=== PATIENT | female | born 1940 | race Caucasian/White ===

== ENCOUNTER 2024-03-22 12:52 | Outpatient (AMB) | payer MEDICARE, BC, SELFPAY ==
--- NOTE | 2024-03-22 12:57 | AM.OFFWIN_ITS ---
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 Allergy (Unknown, Uncoded 03/22/24 12:58) Unknown Do you need a note to return to daycare/school/sports/work: No HPI HPI Comments History of Present Illness Details 83 y/o female patient who presents to [facility] with c/o Epigastric region pain since yesterday evening after dinner. Pt ate a Hot Dog with Ketchup, Relish and mustard for dinner. H/o ?DC Sep 2023, with no surgery, Since then Pt has been very worried. Denies SOB, Palpitations, headaches or dizziness. PFSH Social History Patient Tobacco Use Status: Never used Tobacco Review of Systems Const All systems reviewed & are unremarkable except as noted in HPI and below Physical Exam Vital Signs: Last Vital Signs Temp 97.9 F 03/22/24 13:02 Pulse 76 03/22/24 13:02 BP 130/76 03/22/24 13:02 Pulse Ox 94 03/22/24 13:02 Oxygen Delivery Method Room Air 03/22/24 13:02 Const General: comfortable and no acute distress Orientation/consciousness: patient oriented x3 Resp Effort & Inspection: normal respiratory effort Auscultation: clear to auscultation bilaterally Cardio Rate: regular rate Rhythm: regular rhythm Neuro General: patient oriented x3, gait normal (Walks with a Cane) and moves all extremities Psych Speech and movement: Normal speech and movement present Assessment & Plan Assessment & Plan (1) Epigastric abdominal pain: Code(s): R10.13 - Epigastric pain Plan: Probably Acid Reflux, will Tx with Anti-Acid Advised to watch her diet, avoid oily and greasy foods. Educated on Signs of DC and when to call 911 F/U with PCP Medications: New famotidine 40 mg PO BEDTIME 60 tabs 0RF R10.13 - Epigastric pain Coding Level of Care Code Est Pt Level 3 (08398) Diagnoses Epigastric abdominal pain R10.13 Time Spent (min) 15
[2024-03-22 13:02] VITALS: BP 130/76; PULSE 76; TEMP 36.6; O2SAT 94
== END 2024-03-22 14:31 | disposition home or self-care (01) ==
PROVIDERS: PCP Internal Medicine; Visit Provider Nurse Practitioner Family
DX: R10.13 Epigastric pain (principal)
CPT/HCPCS: 99213

== ENCOUNTER 2024-06-14 13:41 | Outpatient (AMB) | payer MEDICARE, BC, SELFPAY ==
--- NOTE | 2024-06-14 13:46 | MHC.OFFWIV ---
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 Intake Note: pt is here for concern of UTI, and also has possible object in left eye Patient Tobacco Use Status: Never used Tobacco Allergies N.K.D.A. Allergy (Unknown, Uncoded 06/14/24 14:07) Unknown Do you need a note to return to daycare/school/sports/work: No HPI HPI Comments History of Present Illness Details This is an 83-year-old female who presents to the walk-in clinic complaining of concern for UTI and left eye irritation. Patient states she has been having intermittent vaginal irritation for the past 1-2 weeks. She acute denies any dysuria, hematuria, urinary frequency urinary urgency. She states she did have some dark orange urine the other day; however, this has resolved. She denies any fever/chills. She denies any flank/back pain. Additionally, patient has a foreign body sensation in her left eye. She states she looked in her left eye and saw a dark bump?. She denies any eye redness or pain. She denies any visual disturbances or changes. [facility] Social History Patient Tobacco Use Status: Never used Tobacco Review of Systems Const All systems reviewed & are unremarkable except as noted in HPI and below Reports no additional complaints Eyes Reports no additional complaints ENT Reports no additional complaints Card Reports no additional complaints Resp Reports no additional complaints GI Reports no additional complaints Reports no additional complaints Musc Reports no additional complaints Skin/Breast Reports system reviewed and no additional complaints, except as documented Neuro Reports no additional complaints Psych Reports no additional complaints Endo Reports no additional complaints Jay Jay/Lymph Reports no additional complaints Aller/Immun Reports no additional complaints Physical Exam Vital Signs: Last Vital Signs Temp 97.9 F 06/14/24 14:06 Pulse 78 06/14/24 14:06 BP 142/80 H 06/14/24 14:06 Pulse Ox 98 06/14/24 14:06 Oxygen Delivery Method Room Air 06/14/24 14:06 Const Other: Vital signs reviewed. Constitutional: Non-toxic appearing. No acute distress. Well-developed and well-nourished. HEENT: Normocephalic and atraumatic. There is a small clear to white-luke fluid-filled bump on the lateral aspect of the internal left lower eyelid without eyelid pain/swelling/erythema. Skin: Warm and dry. No rashes or lesions noted. Neck: Full and painless range of motion. Cardio: Regular rate. Pulmonary: No respiratory distress. No accessory muscle usage. Gastrointestinal: Soft, nontender, and nondistended in all 4 quadrants. Genitourinary: No CVA tenderness. There is external vaginal irritation and mild erythema. There is no vaginal discharge. Musculoskeletal: Normal range of motion in joints throughout the body. No deformity or other signs of injury. Neuro: Alert and oriented x4. Cranial nerves 2-12 grossly intact. No focal deficits appreciated. Psych: Normal mood and affect. Results AMB Urinalysis, Automated UA Leukoctes 15 Marcelo/uL Last Edit by Eric Frazier CMA on 06/14/24 14:28 UA Nitrite Negative Last Edit by Eric Frazier CMA on 06/14/24 14:28 UA Urobilinogen 0.2 mg/dL Last Edit by Eric Frazier CMA on 06/14/24 14:28 UA Protein 30 mg/dL Last Edit by Eric Frazier CMA on 06/14/24 14:28 UA pH 0 Last Edit by Eric Frazier CMA on 06/14/24 14:28 UA Blood 0 Velasquez/uL Last Edit by Eric Frazier CMA on 06/14/24 14:28 UA Specific Critz 1.030 Last Edit by Eric Frazier CMA on 06/14/24 14:28 UA Ketone Negative Last Edit by Eric Frazier CMA on 06/14/24 14:28 UA Bilirubin 0 mg/dL Last Edit by Eric Frazier CMA on 06/14/24 14:28 UA Glucose 0 mg/dL Last Edit by Eric Frazier CMA on 06/14/24 14:28 Assessment & Plan Assessment & Plan (1) Vaginal irritation: Code(s): N89.8 - Other specified noninflammatory disorders of vagina Plan: This is an 83-year-old female who presented to the walk-in clinic with concerns of a urinary tract infection. Patient reports on and off vaginal irritation but denies any dysuria, hematuria, urinary frequency, or urinary urgency. She has no fevers or chills or flank pain. A vaginal exam was performed and front end software engineer was offered; however, patient declined. On vaginal exam, patient has external vaginal irritation and erythema without any vaginal discharge. Patient was given a prescription for miconazole topical cream to apply externally every night at bedtime. A urinalysis was obtained, which showed minimal leukocyte esterase, which is likely contamination without nitrites. Patient does not appear to have a urinary tract infection given atypical symptoms and essentially negative urinalysis. Patient was advised to follow-up here if she were to develop dysuria, hematuria, frequency, urinary urgency, fever/chills, flank pain. Patient verbalized her understanding and she is in agreement with the plan. (2) Hordeolum internum left lower eyelid: Code(s): H00.025 - Hordeolum internum left lower eyelid Plan: Patient also complained of a foreign body sensation of her left eye. On physical examination, there is a small fluid-filled cyst on the lateral aspect of the left lower eyelid, which likely represented a hordeolum. Patient was given a prescription for erythromycin ophthalmic ointment twice daily as well as a recommendation warm compresses daily. Patient verbalized understanding and she is in agreement with this plan, as well. Orders: Orders AMB Urinalysis Automated Today Z13.9 - Encounter for screening, unspecified Medications: New miconazole nitrate 2% 1 appful vaginal BEDTIME 7 days 45 grams 0RF erythromycin 0.5 inches ophthalmic (eye) BID 3.5 grams 0RF Coding Level of Care Code New Pt Level 3 (15314) Diagnoses Vaginal irritation N89.8 Hordeolum internum left lower eyelid H00.025
[2024-06-14 14:06] VITALS: BP 142/80; PULSE 78; TEMP 36.6; O2SAT 98
== END 2024-06-14 14:48 | disposition home or self-care (01) ==
PROVIDERS: PCP Internal Medicine; Visit Provider Physician Assistant Medical
DX: N89.8 Other specified noninflammatory disorders of vagina (principal); H00.025 Hordeolum internum left lower eyelid; Z13.9 Encounter for screening, unspecified

== ENCOUNTER → 2024-06-14 13:41 | Outpatient (BNVA) | payer MEDICARE, BC, SELFPAY | PROVIDERS: PCP Internal Medicine | DX: N89.8 Other specified noninflammatory disorders of vagina (principal); H00.025 Hordeolum internum left lower eyelid | CPT/HCPCS: 81003; 99202 ==

== ENCOUNTER 2025-02-07 13:10 | Emergency (ER) | payer MEDICARE, BC, SELFPAY ==
[2025-02-07] VITALS (8 sets, daily range): BP systolic 120–147; BP diastolic 48–61; PULSE 69–79; RESP 16–24; TEMP 36.3–36.8; O2SAT 95–97; BMI 19.6
--- NOTE | ~2025-02-07 | XR_ITS ---
CLINICAL HISTORY: cough, dysphagia 1 view chest x-ray Comparison: None Findings: Pulmonary vascular congestion. No large effusion or pneumothorax. Mild cardiomegaly. Aortic atherosclerosis. No acute fracture. IMPRESSION: 1. Pulmonary vascular congestion. 2. Mild cardiomegaly. This document has been electronically signed by: Aashish Hagen MD on 02/07/2025 17:58:58
--- NOTE | ~2025-02-07 | CT_ITS ---
EXAMINATION: CT HEAD WITHOUT CONTRAST CLINICAL INFORMATION: Severe headache. No focal neurologic abnormality. COMPARISON: None available. TECHNIQUE: Contiguous axial imaging was performed from the skull base to vertex without intravenous administration of contrast. This CT examination was performed using dose optimization techniques as appropriate, variously including the following: *Automated exposure control *Adjustment of mA and/or kV according to patient size (this includes techniques or standardized protocols for targeted exams where dose is matched to indication/reason for exam; i.e. extremities or head) *Use of iterative reconstruction technique FINDINGS: There is no evidence of intracranial hemorrhage or extra-axial fluid collection. There is no mass effect, or edema. No CT evidence of acute territorial infarct. Ventricles, sulci, and cisterns are normal in size and configuration for patient age. No hydrocephalus. No midline shift. Negative hyperdense MCA sign. Negative insular ribbon sign. Patchy periventricular and deep white matter hypoattenuation is consistent with moderate small vessel ischemic changes. Normal pituitary. Atheromatous calcification of the bilateral carotid siphons and V4 segments vertebral arteries bilaterally. Globes and orbital contents image normally. There are bilateral lens replacements. No extracranial soft tissue abnormalities. The paranasal sinuses, mastoid air cells, and tympanic cavities are normally aerated. No suspicious bony abnormalities. There are no acute fractures evident. CT/CT head/brain wo IV con IMPRESSION: No acute intracranial abnormality. Electronically signed by: Kwan Barragan MD 02/07/2025 04:17 PM EDT
--- OUTSIDE RECORDS SUMMARY | 2025-02-07 13:48 | XMS_ITS | Continuity of Care Document ---
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 Name Role Phone Patrick GARAY, Kannan Thomas Primary Care Physician Encounter [facility] [place] Date(s): 02/04/25 - 02/04/[address] [address]- Discharge Disposition: A-D/C Walkout Attending Physician: Not on Staff, Attending MD Admitting Physician: Not on Staff, Admitting MD Referring Physician: Not on Staff, Referring MD Encounter Type: Disch ES Allergies, Adverse Reactions, Alerts Substance Criticality Severity Reaction Reaction Severity Status valsartan Cough at rest Stomach pain Active Immunizations Given and Recorded Vaccine Date Status Refusal Reason SARS-CoV-2 (COVID-19) mRNA BNT-162b2 vac 08/26/21 Recorded SARS-CoV-2 (COVID-19) mRNA BNT-162b2 vac 12/31/20 Given SARS-CoV-2 (COVID-19) mRNA BNT-162b2 vac 12/10/20 Given Medications aspirin 81 mg oral delayed release tablet = 81 mg, By Mouth, Daily, # 30 tablet, 0 Refills, Maintenance, 10/10/23 8:49:00 AM EST, EC Tablet, [facility], Partial fill upon patient request if the prescription is for a schedule II opioid drug., 152, cm, 10/10/23 8:02:00 EST, Height, 55, kg, 10/08/23 15:02:00 EST, Dry Weight Start Date: 10/10/23 Stop Date: 11/09/23 Status: Ordered Quantity: 30.0 Unit: tablet Repeat number: 1 atorvastatin 40 mg oral tablet = 40 mg, By Mouth, Daily at bedtime, # 30 tablet, 0 Refills, Maintenance, 10/10/23 8:49:00 AM EST, Tablet, [facility], Partial fill upon patient request if the prescription is for a schedule II opioid drug., 152, cm, 10/10/23 8:02:00 EST, Height, 55, kg, 10/08/23 15:02:00 EST, Dry Weight Start Date: 10/10/23 Stop Date: 11/09/23 Status: Ordered Quantity: 30.0 Unit: tablet Repeat number: 1 Barrier (Sharri) rings Barrier (Sharri) rings, See Instructions, # 20 each, Refills 11, Tot. Refills 11, Maintenance, use as needed for ostomy maintaince. Dx Colostomy Z93.3, 03/11/24 3:51:00 PM EDT, Supply Start Date: 03/11/24 Status: Ordered Quantity: 20.0 Unit: each Repeat number: 12 Barrier strips [id number] Barrier strips [id number], See Instructions, # 40 each, Refills 11, Tot. Refills 11, Maintenance, use as needed for ostomy maintaince. Dx Colostomy Z93.3, 03/11/24 3:51:00 PM EDT, Supply Start Date: 03/11/24 Status: Ordered Quantity: 40.0 Unit: each Repeat number: 12 Blood Pressure Monitor See Instructions, # 1 each, Refills 0, Tot. Refills 0, Maintenance, dx HTN, 09/06/24 8:41:00 AM EST, Supply, 153, cm, 08/19/24 15:09:00 EST, Height, 46.81, kg, 07/16/24 18:47:00 EDT, Dry Weight Start Date: 09/06/24 Status: Ordered Quantity: 1.0 Unit: each Repeat number: 1 Brava thin seals # [id number] Brava thin seals # [id number], See Instructions, # 20 each, Refills 11, Tot. Refills 11, Maintenance, use as needed for ostomy maintenance Dx colostomy Z93.3, 02/20/24 3:09:00 PM EDT, Compound Start Date: 02/20/24 Status: Ordered Quantity: 20.0 Unit: each Repeat number: 12 carvedilol 25 mg oral tablet 0.5, tablet, By Mouth, 2 times a day, # 90 tablet, Refills 0, Maintenance, 01/28/25 10:41:00 AM EDT,Route to Pharmacy Electronically, [facility] #[id number], 153, cm, 01/24/25 12:57:00 EDT, Height, 46.81, kg, 07/16/24 18:47:00 EDT, Dry Weight Start Date: 01/28/25 Status: Ordered Quantity: 90.0 Unit: tablet Repeat number: 1 clonazepam 0.5 mg oral tablet 1 tablet = 0.5 mg, By Mouth, 3 times a day, prn, 0 Refills, Maintenance, 05/17/13 1:33:45 PM EDT Start Date: 05/17/13 Status: Ordered Repeat number: 1 coloplast assura bags (#[id number]) coloplast assura bags (#[id number]), See Instructions, # 20 each, Refills 11, Tot. Refills 11, Maintenance, use as needed for ostomy maintaince. Dx Colostomy Z93.3, 03/11/24 3:52:00 PM EDT, Supply Start Date: 03/11/24 Status: Ordered Quantity: 20.0 Unit: each Repeat number: 12 coloplast bags #[id number] coloplast bags #[id number], See Instructions, # 20 each, Refills 11, Tot. Refills 11, Maintenance, use as needed for ostomy care Dx. colostomy Z93.3, 02/20/24 3:09:00 PM EDT, Compound Start Date: 02/20/24 Status: Ordered Quantity: 20.0 Unit: each Repeat number: 12 diclofenac 3% topical gel = 0.5 Gm, Topically, 2 times a day, # 100 Gm, 0 Refills, Maintenance, 05/17/24 11:15:00 PM EDT, Gel,[facility] #[id number], Partial fill upon patient request if the prescription is for a schedule II opioid drug., 0.5 Gm Topically 2 times a day, 152.5, cm, 04/19/24 11:52:00 EDT, Height, 50, kg,02/02/24 10:14:00 EDT, Dry Weight Start Date: 05/17/24 Status: Ordered Quantity: 100.0 Unit: g Repeat number: 1 hydrALAZINE 25 mg oral tablet 25 mg, 1, tablet, By Mouth, 2 times a day, Take with 50mg dose. total dose is 75 mg, # 180 tablet, Refills 1, Tot. Refills 1, Maintenance, 11/12/24 10:17:00 AM EST, Route to Pharmacy Electronically, [facility] #[id number], Partial fill upon patient request if the prescription is for a schedule II opioid drug., 153, cm, 08/19/24 15:09:00 EST, Height, 46.81, kg, 07/16/24 18:47:00 EDT, Dry Weight Start Date: 11/12/24 Stop Date: 05/11/25 Status: Ordered Quantity: 180.0 Unit: tablet Repeat number: 2 hydrALAZINE 50 mg oral tablet 1 tablet = 50 mg, By Mouth, 2 times a day, take with the 25mg dose. Total dosage is 75 mg, # 180 tablet, 1 Refills, Maintenance, 11/12/24 10:16:00 AM EST, [facility] #[id number], 153, cm, 08/19/24 15:09:00 EST, Height, 46.81, kg, 07/16/24 18:47:00 EDT, Dry Weight Start Date: 11/12/24 Stop Date: 05/11/25 Status: Ordered Quantity: 180.0 Unit: tablet Repeat number: 2 isosorbide mononitrate 60 mg oral tablet, extended release 60 mg, 1, tablet, By Mouth, Daily in AM, # 30 tablet, Refills 4, Tot. Refills 4, Maintenance, 11/06/24 2:37:00 PM EST, Route to Pharmacy Electronically, [facility] #[id number], Partial fill upon patient request if the prescription is for a schedule II opioid drug., 153, cm, 08/19/24 15:09:00 EST, Height, 46.81, kg, 07/16/24 18:47:00 EDT, Dry Weight Start Date: 11/06/24 Status: Ordered Quantity: 30.0 Unit: tablet Repeat number: 5 MiraLax oral powder for reconstitution = 17 Gm, By Mouth, Daily, dissolve in water or juice, # 527 Gm, 3 Refills, Maintenance, 02/20/24 5:09:00 PM EDT, [facility] #[id number], Partial fill upon patient request if the prescription is for a schedule II opioid drug., 17 Gm By Mouth Daily,Instr:dissolve in water or juice, 152.5, cm, 02/07/24 10:11:00 EDT, Height, 50, kg, 02/02/24 10:14:00 EDT, Dry Weight Start Date: 02/20/24 Status: Ordered Quantity: 527.0 Unit: g Repeat number: 4 no sting skin prep spray no sting skin prep spray, See Instructions, # 1 each, Refills 11, Tot. Refills 11, Maintenance, useas needed for ostomy care. Dx colostomy Z 93.3, 02/20/24 3:09:00 PM EDT, Compound Start Date: 02/20/24 Status: Ordered Quantity: 1.0 Unit: each Repeat number: 12 No sting spray (skin prep) No sting spray (skin prep), See Instructions, # 1 each, Refills 11, Tot. Refills 11, Maintenance, use as needed for ostomy maintaince. Dx Colostomy Z93.3, 03/11/24 3:51:00 PM EDT, Supply Start Date: 03/11/24 Status: Ordered Quantity: 1.0 Unit: each Repeat number: 12 precut coloplast bags #[id number] precut coloplast bags #[id number], See Instructions, # 20 each, Refills 11, Tot. Refills 11, Maintenance, use as needed for ostomy care Dx. colostomy Z93.3, 04/16/24 1:39:00 PM EDT, Compound Start Date: 04/16/24 Status: Ordered Quantity: 20.0 Unit: each Repeat number: 12 sertraline 25 mg oral tablet TAKE 1 TABLET BY MOUTH DAILY Start Date: 11/28/24 Status: Ordered Repeat number: 1 Zolpidem = 10 mg, By Mouth, Daily at bedtime, 0 Refills, Maintenance, 01/20/23 1:53:00 PM EDT, Partial fill upon patient request if the prescription is for a schedule II opioid drug. Start Date: 01/20/23 Status: Ordered Repeat number: 1 Problem List Condition Confirmation Course Effective Dates Status H ealth Status Informant Chest pain Confirmed Active Coronary artery disease Confirmed Active Hiatal hernia Confirmed Active Hyperlipidemia Confirmed Active Hypertension Confirmed Active Vital Signs Most recent to oldest [Reference Range]: 1 Height 153 cm (02/04/25 3:07 PM) Oxygen Saturation [94-100 %] 99 % (02/04/25 3:07 PM) Pulse Rate [55-90 bpm] 78 bpm (02/04/25 3:07 PM) Blood Pressure [90-138/55-84 mm Hg] 195/ 78mm Hg *H* (02/04/25 3:07 PM) Respiratory Rate [16-30 br/min] 18 br/mi n (02/04/25 3:07 PM) Temperature [96.8-100.4 DegF] 98.5 DegF (02/04/25 3:07 PM) Mode of Delivery (Oxygen) Room air (02/04/25 3:07 PM) Blood pressure sites Arm, left (02/04/25 3:07 PM) Temperature Route Oral (02/04/25 3:07 PM) Dry Weight 45 kg (02/04/25 3:07 PM) Dry Weight Obtained Via Patient/family s tated (02/04/25 3:07 PM) Social History Social History Type Response Smoking Status Former smoker; Tobac co user in household: No; Other: pt states she quit smoking in her 20s 1961; entered on: 05/15/17 Sex Sex Representation Female (finding) EKG study * Event Display: ECG 12-Lead Authored Date: Please click on pdf link to open report * Event Display: ECG 12-Lead Authored Date: Ventricular Rate: 72 BPM Atrial Rate: 72 BPM P-R Interval: 134 ms QRS Duration: 74 ms Q-T Interval: 424 ms QTC Calculation(Bazett): 464 ms P [place]: 57 degrees R [place]: -35 degrees T [place]: 51 degrees Normal sinus rhythm with sinus arrhythmia Possible Left atrial enlargement Left axis deviation Anteroseptal infarct (cited on or before 28-Nov-2024) Abnormal ECG When compared with ECG of 01-Jan-2025 13:35, No significant change Confirmed by CAROLEE LOWERY ([id number]) on 02/04/2025 3:01:17 PM [place]: CAROLEE LOWERY Patient Care team information Care Team Personnel Name: Carole Bhatia RN Position: S RN Member Role: Primary Care Nurse Name: Hue Miller RN Position: S RN Member Role: Primary Care Nurse Name: Kannan Nguyen MD Position: Reference Physician Member Role: PCP Address: [address] [place] [address] Telecom: Name: Paul Chan RN Position: S RN Member Role: Primary Care Nurse Name: Manisha Huntley RN Position: S RN Member Role: Primary Care Nurse Name: Aye Driver RN Position: S RN Member Role: Primary Care Nurse Name: Robyn Sun RN Position: S RN Member Role: Primary Care Nurse Name: Marianne Nathan RN Position: S RN Member Role: Primary Care Nurse Name: Nette Kemp RN Position: S RN Member Role: Primary Care Nurse Name: Suellen Collins RN Position: S RN Member Role: Primary Care Nurse Name: Ana Laura Day RN Position: S RN Member Role: Primary Care Nurse Name: Maggie Quinones RN Position: [facility] OB RN Member Role: Primary Care Nurse Name: Sandrita Hernandez RN Position: S RN Member Role: Primary Care Nurse Name: Cira Grayson RN Position: S RN Member Role: Primary Care Nurse Name: Alison Rouse RN Position: S RN Member Role: Primary Care Nurse Care Team Related Persons Name: ALEJANDRA CONDE Name: EZ CONDE Insurance Providers Guarantor name: MARTIN CONDE Health Plan Information #: 2 Payer: [employer] Member Number: [id number] Policy Number: NA Group Number: [id number] Health Plan Information #: 1 Payer: MEDICARE PART B OUTPT Member Number: [id number] Policy Number: NA Group Number: NA
--- NOTE | 2025-02-07 14:49 | ED_ITS ---
HPI - Headache General Chief Complaint: Headache Stated Complaint: PER EMS FLANAGAN X1 MO DYSPNEA Time Seen by Provider: 02/07/25 13:22 History of Present Illness ED Provider: Vaughn Reeder MD HPI Narrative: 84-year-old female with chronic long-lasting left-sided headache and facial/neck discomfort. No head strike, fall chiropractic manipulation or other injuries. She shows me what she feels is a sore spot on the left posterior occiput she points to the left cheek and neck musculature on the left side as being painful some retro-orbital headache as well. Not throbbing or pulsatile denies vision symptoms. No focal motor or sensory complaints Reporting increased anxiety as well. Later in the workup endorse some challenges swallowing ongoing for some time not acutely slightly worse occasional subjective choking sensation without difficulty breathing. Despite triage note denies dyspnea to me. This is more of a swallowing/dysphagia issue it seems Related Data Home Medications ?Medication ?Instructions ?Recorded ?Confirmed amlodipine 5 mg tablet 5 mg PO DAILY 03/22/24 atorvastatin 40 mg tablet 40 mg PO DAILY 03/22/24 carvedilol 12.5 mg tablet 12.5 mg PO BID 03/22/24 clonazepam 0.5 mg tablet 0.5 mg PO DAILY 03/22/24 polyethylene glycol 3350 17 17 g PO DAILY 03/22/24 gram/dose oral powder zolpidem 10 mg tablet 10 mg PO BEDTIME PRN 03/22/24 Previous Rx's ?Medication ?Instructions ?Recorded famotidine 40 mg tablet 40 mg PO BEDTIME #60 tabs 03/22/24 erythromycin 5 mg/gram (0.5 %) eye 0.5 inch ophthalmic (eye) BID #3.5 06/14/24 ointment grams miconazole nitrate 2 % vaginal 1 appful vaginal BEDTIME 7 days 06/14/24 cream #45 grams alprazolam 0.25 mg tablet (Xanax) 0.25 mg PO BID PRN anxiety #7 tabs 02/07/25 nystatin 100,000 unit/mL oral 400,000 unit (4 mL) PO QID 7 days 02/07/25 suspension #112 mL Allergies Allergy/AdvReac Type Severity Reaction Status Date / Time N.K.D.A. Allergy Unknown Unknown Uncoded 02/07/25 13:29 [facility] Social History Social History Patient Tobacco Use Status: Never used Tobacco Physical Exam 2 Vital Signs: Vital Signs: Last Vital Signs Temp 98.3 F 02/07/25 18:32 Pulse 76 02/07/25 18:32 Resp 16 02/07/25 18:32 BP 143/61 H 02/07/25 18:32 Pulse Ox 95 02/07/25 18:32 O2 Del Method Room Air 02/07/25 18:32 BMI result Body Mass Index 19.6 Const: Other: EXAM: Gen: Alert, awake, well appearing, well hydrated. Anxious Head: Atraumatic mild tenderness without palpable nodularity or mass in the left occiput. No injuries Eyes: Anicteric, Normal conjunctiva. Pupils 2-3 mm symmetric and reactive EOMI no conjunctival injection. No pain with extraocular movement. ENT: Moist mucosa, no pallor. ?Mild facial tenderness. Tongue does have a thick white film scattered somewhat suggestive of thrush Neck: Supple. Tenderness over the left sternocleidomastoid no masses supple otherwise Respiratory: Breathing comfortably, No distress.Clear to auscultation bilaterally, symmetric chest expansion, No wheeze, rales, ronchi. Cardiovascular: Regular rate and rhythm. No murmurs or rub. Well perfused periphery, warm extremities. No edema. ? Abdominal: Soft, no objective distension. No palpable masses or obvious organomegaly. No focal tenderness, no guarding, no rebound tenderness or other peritoneal findings. : No flank tenderness. Neuro: Alert. Gross movement of all extremities intact. ?5/5 strength proximal distal upper and lower extremities bilaterally sensation intact to light touch. Face symmetric normal speech Vital signs: See flowsheet Medications Administered Discontinued Medications Generic Name Dose Route Start Last Admin Trade Name Freq PRN Reason Stop Dose Admin Acetaminophen 975 mg 02/07/25 16:24 02/07/25 17:16 Acetaminophen 325 Mg Tablet PO 02/07/25 16:25 975 mg ONCE ONE Administration Alprazolam 0.25 mg 02/07/25 17:12 02/07/25 17:16 Alprazolam 0.25 Mg Tablet PO 02/07/25 17:13 0.25 mg ONCE ONE Administration Nystatin 500,000 unit 02/07/25 17:12 02/07/25 17:16 Nystatin Oral Susp 500,000 Unit/5 Ml Oral.Susp PO 02/07/25 17:13 500,000 unit ONCE ONE Administration Protocol Medical Decision Making Medical Decision Making [facility] Narrative: 84-year-old female with left-sided headache scalp tenderness and neck pain. No injuries. Reassuring normal neurologic exam. Tension versus neck strain versus dehydration versus migraine versus intracranial mass or process. Patient clearly anxious contributing to some of this. She does appear to have some type of dysphagia but she has no stridor patent airway oropharynx is clear she does have some mild signs of thrush and I think it is reasonable to empirically treat this and refer her to outpatient PCP for GI referral for possible endoscopy to see if she has esophageal thrush she does not have a clear reason as to why she would have this as she is not immunocompromised Lab Data [facility] Lab Attestation statement: I reviewed the patient's lab results. 02/07/25 16:04 02/07/25 16:04 Labs: Lab Results 02/07/25 Range/Units 16:04 WBC 9.2 (4.8-10.8) X10*3/uL RBC 4.31 (4.20-5.50) X10*6/uL Hgb 13.0 (12.0-16.0) g/dl Hct 38.3 (37.0-47.0) % MCV 88.9 (80.0-98.0) fL MCH 30.2 (27.0-33.0) pg MCHC 33.9 (31.0-35.0) g/dl RDW 15.7 (11.0-16.0) % Plt Count 305 (160-400) X10*3/uL MPV 10.4 (9.4-12.3) fL Immature Gran % (Auto) 0.3 (0.0-0.4) % Neut % (Auto) 68.5 (45-73) % Lymph % (Auto) 21.3 (20-40) % [place] % (Auto) 9.0 (2-11) % Eos % (Auto) 0.4 (0-4) % Baso % (Auto) 0.5 (0-2) % Lymph # (Auto) 2.0 (1.2-4.9) X10*3/uL [place] # (Auto) 0.8 (0.1-1.2) X10*3/uL Eos # (Auto) 0.0 (0.0-0.4) X10*3/uL Baso # (Auto) 0.1 (0.0-0.2) X10*3/uL Abs Immat Gran (auto) 0.03 (0.00-0.03) X10*3/uL Absolute Neuts (auto) 6.3 (2.0-8.3) x10*3/uL Absolute Nucleated RBC 0.000 (0.0-0.012) X10*3/uL Nucleated RBC % (auto) 0.0 (0.0-0.2) /100WBC Sodium 136 (135-145) mmol/L Potassium 4.1 (3.3-5.1) mmol/L Chloride 102 (96-108) mmol/L Carbon Dioxide 23 (22-29) mmol/L Anion Gap 15 (12-20) BUN 13 (9-16) mg/dL Creatinine 0.56 (0.5-1.4) mg/dL Estim Creat Clear Calc 51.8 Estimated GFR > 60 Random Glucose 109 (60-115) mg/dL Calcium 9.2 (8.4-10.2) mg/dL Independent Interpretation I performed an independent interpretation of an: Plain X-Ray (Clear no infiltrates) Radiology Impression Discussion of test interpretation with radiology: I have reviewed the radiologist's reading. Discharge Plan Discharge Clinical Impression: Headache, Oral thrush, Anxiety Patient Disposition: Home, Self-Care Instructions: Oral Candidiasis (ED), Acute Headache (DC), Anxiety (ED) Additional Instructions: _ DISCHARGE DIAGNOSES: Headache unclear cause acute severe or serious causes ruled out with head CT in the ER Anxiety nonspecified Possibly thrush or candidiasis fungal infection of the tongue mouth HISTORY OF PRESENTATION: ?Headache neck pain ear pain EMERGENCY DEPARTMENT COURSE,TESTS, TREATMENTS: While in the ED today you had basic lab work and a CT of the brain which showed no acute pathology DISCHARGE MEDICATIONS: ?[We have made no changes to your regular medication regimen] we have however added on prescription for nystatin an antifungal mouth medicine to be switched in the mouth and swallowed as well as an anxiety medicine to be taken only as needed. FOLLOW-UP: ?Call your primary or general physician soon as possible to discuss your symptoms, your ED visit and to discuss follow up plans Call your primary doctor for referral to GI doctor to schedule an upper endoscopy Call your primary doctor for follow up continue with Tylenol or ibuprofen as needed heating pad to the neck or massages of the neck muscles INSTRUCTIONS ?& RETURN PRECAUTIONS: If any symptoms change first call your primary physician, if it is after-hours your primary doctors office should have a provider informatics consultant you can speak with. If the symptoms are severe or very concerning to you then call 911 or return to the ED. Return for severe worsening headache, vision changes, 1 side or the other side of your body week numb or tingling or other significant or severe symptoms as we discussed Vaughn Reeder MD Emergency Physician [facility] Prescriptions: New nystatin 100,000 unit/mL suspension 400,000 unit PO QID 7 Days Qty: 112 0RF Rx Instructions: swish and swallow alprazolam [Xanax] 0.25 mg tablet 0.25 mg PO BID PRN (Reason: anxiety) Qty: 7 0RF No Action carvedilol 12.5 mg tablet 12.5 mg PO BID zolpidem 10 mg tablet 10 mg PO BEDTIME PRN polyethylene glycol 3350 17 gram/dose powder 17 g PO DAILY clonazepam 0.5 mg tablet 0.5 mg PO DAILY atorvastatin 40 mg tablet 40 mg PO DAILY amlodipine 5 mg tablet 5 mg PO DAILY famotidine 40 mg tablet 40 mg PO BEDTIME Qty: 60 0RF miconazole nitrate 2 % cream 1 appful vaginal BEDTIME 7 Days Qty: 45 0RF erythromycin 5 mg/gram (0.5 %) ointment 0.5 inch ophthalmic (eye) BID Qty: 3.5 0RF Interventions: ED Discharge Assessment Last Done: 02/07/25 18:32 Discharge Date/Time: 02/07/25 18:32 Print Language: Egyptian
[2025-02-07 16:12] LABS: MANUAL DIFF FLAG NO
[2025-02-07 16:14] LABS: Basophils Absolute Auto 0.1 X10*3/uL (0.0-0.2); Basophils Percent Auto 0.5 % (0-2); Eosinophils Percent Auto 0.4 % (0-4); Hematocrit 38.3 % (37.0-47.0); Imm Gran Abs Auto 0.03 X10*3/uL (0.00-0.03); Imm Gran Pct Auto 0.3 % (0.0-0.4); Lymphocytes Percent Auto 21.3 % (20-40); Mean Corpuscular HGB Conc 33.9 g/dl (31.0-35.0); Mean Corpuscular Hemoglobin 30.2 pg (27.0-33.0); Mean Corpuscular Volume 88.9 fL (80.0-98.0); Mean Platelet Volume 10.4 fL (9.4-12.3); Monocytes Absolute Auto 0.8 X10*3/uL (0.1-1.2); Neutrophils Absolute Auto 6.3 x10*3/uL (2.0-8.3); Neutrophils Percent Auto 68.5 % (45-73); Platelet Count 305 X10*3/uL (160-400); Red Blood Count 4.31 X10*6/uL (4.20-5.50); Red Cell Distribution Width 15.7 % (11.0-16.0); White Blood Count 9.2 X10*3/uL (4.8-10.8)
[2025-02-07 16:28] LABS: Anion Gap 15 (12-20); Blood Urea Nitrogen 13 mg/dL (9-16); Calcium 9.2 mg/dL (8.4-10.2); Carbon Dioxide 23 mmol/L (22-29); Chloride 102 mmol/L (96-108); Creatinine Clr Calc Pharmacy 51.8; Estimated Glomerular Filt Rate > 60; Glucose Random 109 mg/dL (60-115); Potassium 4.1 mmol/L (3.3-5.1); Sodium 136 mmol/L (135-145)
--- NOTE | 2025-02-07 16:38 | PC.NURSE ---
CT scan back; no findings. ED provider approved PO liquids and Pt given ice water with straw. Pt up for D/C. Upon entering room, Pt reports she is now having difficulty swallowing. Pt and daughter now report Pt had difficulty swallowing last night but was able to eat oatmeal this AM. Pt reports she was able to take a few sips but now feels like her throat is closing up. O2 sat 96% RA Breaths and speech are unlabored. Skin is warm and dry; color consistent with ethnicity. ED provider made aware. Will hold ordered PO Tylenol at this time. Dispo pending.
[2025-02-07] MEDS: ALPRAZolam 0.25 MG TABLET PO (17:16)
[2025-02-07] MEDS: Nystatin Oral Susp 500,000 UNIT/5 ML ORAL.SUSP 500000 UNIT PO (17:16)
[2025-02-07] MEDS: Acetaminophen 325 MG TABLET 975 MG PO (17:16)
--- NOTE | 2025-02-07 17:24 | PC.NURSE ---
Provider to bedside for eval of throat and Pts complaints. New orders placed. Pt given sips of water and swallows without difficulty. PO meds given per NOV Nystatin per NOV. Awaiting CXR
== END 2025-02-07 18:32 | disposition home or self-care (01) ==
PROVIDERS: Emergency Provider Emergency Medicine; PCP Internal Medicine
DX: B37.0 Candidal stomatitis (principal); R51.9 Headache, unspecified; M54.2 Cervicalgia; F41.9 Anxiety disorder, unspecified; R05.9 Cough, unspecified; R13.10 Dysphagia, unspecified; Z79.899 Other long term (current) drug therapy
CPT/HCPCS: 36415; 70450; 71045; 80048; 85025; 99284

== ENCOUNTER → 2025-02-07 15:21 | Outpatient (BNV) | payer MEDICARE, BC, SELFPAY | PROVIDERS: Emergency Provider Emergency Medicine; PCP Internal Medicine; Visit Provider Radiology Diagnostic Radiology | DX: J81.0 Acute pulmonary edema (principal); R51.9 Headache, unspecified | CPT/HCPCS: 70450 ==

== ENCOUNTER 2025-07-04 13:23 | Emergency (ER) | payer MEDICARE, BC, SELFPAY ==
--- OUTSIDE RECORDS SUMMARY | 2024-06-14 09:15 | XMS_ITS ---
Author Organization [facility] Address [address] [place] [address] Care Team Providers Care Graphite Disk Assembler Name Role Phone Kannan Nguyen MD Primary Care Provider Roxana Del Rio [phone] REASON FOR VISIT Seen Sooner Encounters Encounter Location Date Provider Diagnosis [address] [address] 06/14/2024 Roxana Quiles Plan Of Treatment Next Appt Details Provider Name:Roxana avery, 10/10/2025 11:00:00 AM, [address] [place], [address], Progress Notes * Stephanie GRAY MDOB: [birth year] (84 yo F)Acc No.[id number]:06/14/2024 Progress Note Patient: Charlene RIDERStephanie Avery Provider: Nikki Quiles DPM :1940 A ge:83 Y S ex:Female Date:06/14/2024 Address: [address] [id number] Pcp:Kannan Nguyen MD Subjective: * Chief Complaints: [...] 06/14/2024 Generated for Leeann juares/Aneta/Lorena on: 1 04:23 PM EDT
--- OUTSIDE RECORDS SUMMARY | 2024-08-09 08:00 | XMS_ITS ---
Author Organization [facility] Address [address] [place] [address] Care Team Providers Care Commander Police Reserves Name Role Phone Kannan Nguyen MD Primary Care Provider Roxana Del Rio [phone] REASON FOR VISIT Seen Sooner Encounters Encounter Location Date Provider Diagnosis [address] [address] 08/09/2024 Roxana Quiles Plan Of Treatment Next Appt Details Provider Name:Roxana avery, 10/10/2025 11:00:00 AM, [address] [place] [address], [address], Progress Notes * Stephanie GRAY MDOB: [birth year] (84 yo F)Acc No.[id number]:08/09/2024 Progress Note Patient: Charlene RIDERStephanie Avery Provider: Nikki Quiles DPM :1940 A ge:84 Y S ex:Female Date:08/09/2024 Address: [address] [id number] Pcp:Kannan Nguyen MD Subjective: * Chief Complaints: [...] 1 10/09/2023 Generated for Leeann juares/Aneta/Lorena on: 04:23 PM EDT
--- OUTSIDE RECORDS SUMMARY | 2024-09-10 06:30 | XMS_ITS ---
Author Organization [facility] Address [address] [place] [address] Care Team Providers Care Associate Quality Engineer Name Role Phone Kannan Nguyen MD Primary Care Provider Roxana Del Rio [phone] Encounters Encounter Location Date Provider Diagnosis [address] [address] 09/10/2024 Roxana Quiles Plan Of Treatment Next Appt Details Provider Name:Roxana avery, 10/10/2025 11:00:00 AM, [address] [place], [address], Progress Notes * Stephanie GRAY MDOB: [birth year] (84 yo F)Acc No.[id number]:09/10/2024 Progress Note Patient: Charlene RIDERStephanie Avery Lon Provider: Nikki Quiles DPM :1940 A ge:84 Y S ex:Female Date:09/10/2024 Address: [address] [id number] Pcp:Kannan Nguyen MD Subjective: * Chief Complaints: [...] Quiles DPM Date: 11/11/2023 Generated for Leeann juares/Aneta/Briseidaitting on: 1 04:23 PM EDT
--- OUTSIDE RECORDS SUMMARY | 2025-01-28 07:30 | XMS_ITS ---
Author Organization [facility] Address [address] [place] [address] Care Team Providers Care Faculty Research Physician Name Role Phone Kannan Nguyen MD Primary Care Provider Roxana Del Rio [phone] Encounters Encounter Location Date Provider Diagnosis [address] [address] 01/28/2025 Roxana Quiles Plan Of Treatment Next Appt Details Provider Name:Roxana avery, 10/10/2025 11:00:00 AM, [address] [place], [address], Progress Notes * Stephanie GRAY MDOB: [birth year] (84 yo F)Acc No.[id number]:01/28/2025 Progress Note Patient: Charlene RIDERStephanie Avery Lon Provider: Nikki Quiles DPM :1940 A ge:84 Y S ex:Female Date:01/28/2025 Address: [address] [id number] Pcp:Kannan Nguyen MD Subjective: * Chief Complaints: [...] DPM Date: 0 01/28/2025 Generated for Leeann juares/Aneta/Briseidaitting on: 1 04:22 PM EDT
--- OUTSIDE RECORDS SUMMARY | 2025-07-01 07:30 | XMS_ITS ---
Author [facility] Address [address] [facility] [facility] [place] [address] Care Team Providers Care Lead Setter Name Role Phone Kannan Nguyen MD Primary Care Provider Roxana Del Rio Unavailable [phone] Allergies Allergen (clinical drug ingredient) Drug/Non Drug Allergy documented on EMR Reaction Allergy Type Onset Date Status valsartan Valsartan coughing Drug Allergy Active REASON FOR VISIT At Risk Footcare, Painful Nail(s) aggrevated by shoes and causing difficulty standing/walking. Medications Medication SIG (Take, Route, Frequency, Duration) Notes Start Date End Date Status Isosorbide Mononitrate ER 60 MG 1 tablet in the morning Orally Once a day Active Vitamin D3 Active Baby Aspirin Active busPIRone HCl 10 MG 1 tablet Orally Twic e a day Active Sertraline HCl 25 MG 1 tablet Orally Onc e a day Active Tylenol 325 MG 1 tablet as needed Orally every 6 hrs; Duration: 1 dose 06/10/2014 Not-Taking Losartan Potassium-HCTZ Not-Taking Pettus 3 Not-Taking Vitamin D Not-Taking Vitamin E Not-Taking HYDROcodone-Acetaminophen Not-Taking Lansoprazole Not-Sebastian ing Omeprazole Not-Takin g Triazolam Not-Taking amLODIPine Besylate Not-Taking Doxycycline Hyclate Not-Taking Spironolactone 25 MG 1 tablet Orally; Duration: 30 day(s) Not-Taking Voltaren 1 % as directed Externally Not-Taking Valsartan 80 MG 1 tablet Orally Once a day; Duration: 30 day(s) Not-Taking Sertraline HCl Not-T aking hydrALAZINE HCl 25 MG 1 tablet with food Orally Three times a day; Duration: 30 day(s) Not-Taking Multi Vitamin Not-Ta rhona Vitamin D3 Not-Takin g Ketoconazole 2 % 1 application Externally Once a day; Duration: 14 day(s) Not-Taking Simvastatin 20 MG 1 tablet in the evening Orally Once a day; Duration: 30 days Not-Takin g Fluconazole 150 MG Oral; Duration: 2 Not-Taking clonazePAM prn Not-Takin g Isosorbide Mononitrate 20 MG Oral; Duration: 30 Days Not-Taking Centrum Silver Not-T aking Vitamin C Not-Taking hydrALAZINE HCl Acti ve Atorvastatin Calcium 40 MG 1 tablet Oral ly Once a day Active Aspirin 81 MG 1 capsule Orally Onc e a day; Duration: 30 day(s) Not-Taking Carvedilol 12.5 MG 1 tablet with food Orally Twice a day Active Zolpidem Tartrate 10 MG 1 tablet at bedt gurinder as needed Orally Once a day Active Lisinopril Not-Takin g Social History Tobacco Use: Social History Observation Description Date Details (start date - stop date) Never Smoker NA - NA Tobacco use other than smoking: Question Answer Notes Are you an other tobacco user? No Tobacco Control (Standard) Question Answer Notes Tobacco use: Nonsmoker Additional Findings: Tobacco non-user Current no nsmoker AUDIT-C (Standard) Question Answer Notes Did you have a drink containing alcohol in the p ast year? No Points 0 Interpretation Negative Vital Signs Height 5ft in 07/01/2025 Weight 109 lbs 07/01/2025 BMI 21.29 kg/m2 07/01/2025 Blood pressure systolic 130 mm Hg 07/01/20 25 Blood pressure diastolic 60 mm Hg 025 Encounters Encounter Location Date Provider Diagnosis [facility] [address] [place] [address] 07/01/2025 Roxana Quiles Atherosclerosis of artery of both lower extremities I70.203 Assessments Encounter Date Diagnosis (ICD Code) Assessment Notes Treatment Notes Treatment Clinical Notes Section Notes 07/01/2025 Atherosclerosis of artery of both lower extremities (ICD-10 - I70.203) Plan Of Treatment Next Appt Details Follow Up: 3 Months, Reason: Provider Name:Roxana avery, 10/10/2025 11:00:00 AM, [address] [place], [address], Procedure Notes * Category Sub-Category Detail Notes Keratoma Treatment Parring or Cutting o f Benign Hyperkeratotic Lesion(s) (-57) More than 4 Lesions - Due to the at risk nature of the patients medical condition as documented in the exam findings, performance of this keratoderma treatment is medically necessary as its management by an unskilled/untrained nonprofessional would put this patients foot and overall health at risk. Therefore, the benign hyperkeratotic lesions, ( 6 ) in total, locations as stated and described in the exam (SUB MTH (s) 3 5 B/LPlantar Heel(s), B/L,), were pared, and/or cut utilizing a sterile 15 blade, tissue nippers, and/or power dremel instrumentation by the physician of record - [id number] Nail Reduction Nail Reduction (-27) Trimming o f all dystrophic nails - Due to the at risk nature of the patients medical condition as documented in the exam findings, performance of this nail treatment is medically necessary as its management by an unskilled/untrained nonprofessional would put this patients foot and overall health at risk. Therefore, the dystrophic nails, in locations as stated and described in the exam ( TA, T1, T2, T3, T4, T5, T6, T7, T8, T9, ), were debrided by the phisician of record to reduce/remove overall nail length and girth, by manual and electrical means with use of a nail nipper and/or dremel, to more viable healthy nail plate or bed tissue - G0127 Progress Notes * Stephanie GRAY MDOB: [birth year] (84 yo F)Acc No.[id number]:07/01/2025 Progress Note Patient: Dariana CURTIShleen Lon Provider: Nikki Quiles DPM :1940 A ge:84 Y S ex:Female Date:07/01/2025 [address] Pcp:Kannan Nguyen MD Subjective: * Chief Complaints: * A t Risk FootcarePainful Nail(s) aggrevated by shoes and causing difficulty standing/walking. * HPI: A t Risk footcare: Pt States Last PCP Visit: D ate 0 06/12/2025 * ROS: G eneral/Constitutional: Nausea d enies, denies. V omiting d enies, denies.?Hunger Thirst d enies, denies. L oss appetite d enies, denies. C hills d enies, denies. F atigue d enies, denies. F ever d enies, denies. N ight Sweats denies, denies. U nexplained weight loss d enies, denies. U nexplained weight gain?denies, denies. H EENTM: Dentures d enies, denies. D izziness d enies, denies. G lasses/contacts a dmits, admits. R etinopathy d enies, denies. B lurred/double vision d enies, denies. T MJ d enies, denies. D ischarge/drainage d enies, denies. I mplants d enies, denies. S ore throat d enies, denies. D ental implants?denies, denies. H sandra of hearing d enies, denies. D ifficulty chewing/swallowing/speaking d enies, denies. N ose bleeds d enies, denies. S ore mouth d enies, denies. R espiratory: On Oxygen d enies, denies. P neumonia/pleurisy d enies, denies. B ronchitis d enies, denies. E mphysema d enies, denies. C oughing?denies, denies. C ough blood d enies, denies. S hortness of breath d enies, denies. W heezing d enies, denies. C ardiovascular: Pacemaker d enies, denies. M RECREATION FACILITY ATTENDANT d enies, denies.?WPW d enies, denies. C HF d enies, denies. H eart attack d enies, denies.?Septal defect d enies, denies. R apid beat d enies, denies. C hest pain d enies, denies. A trial Fib. d enies, denies. M urmur/Palpitations d enies, denies. G astrointestinal: Hemorrhoids d enies, denies. S tomach/Abdominal pain?denies, denies. D ark blood stool d enies, denies. I rritable bowel d enies, denies. C onstipation d enies, denies. D iarrhea d enies, denies. H ematology: Swelling d enies, denies. C lots d enies, denies.?Varicose Veins d enies, denies. B ruising d enies, denies. B leeding problem?denies, denies. G enitourinary: Blood urine d enies, denies. F requent/Painfu/urination/bladder control d enies, denies. K idney stones d enies, denies. I nfection (UTI)?denies, denies. N ephropathy d enies, denies. s ex trans dis (STD) d enies, denies. P rostate d enies, denies. M usculoskeletal: Hammertoes a dmits, admits. B unions a dmits, admits. B ack Pain a dmits, admits. M uscle Cramps/ Resting d enies, denies. M uscle cramps / walking d enies, denies. G eneralized aches and pains a dmits, admits. W eakness d enies, denies. I nteg.: Rowley d enies, denies. S cars d enies, denies. C orns/calluses d enies, denies. I ngrown nails a dmits, admits. P ainful nails d enies, denies. O pen Sores d enies, denies. R ashes d enies, denies. ? N eurologic: Difficulty sleeping d enies, denies. B rain disorder?denies, denies. N umbness d enies, denies. B alance trouble d enies, denies. C onfusion d enies, denies. F ainting/blackouts d enies, denies. T ingling d enies, denies. T remors d enies, denies. * Medical History: * Surgical History: a ppendectomy 1939cesarean section 1964cataract surgery oth eyes surgery 1991colon surgery- ostemy bag - fall 2022mini stroke 2023 * Hospitalization/Major Diagno stic Procedure: B - Heart attack- pneumonia 10/11[facility] [place]- Diverticulitis 12/09[facility] [place]- colon burst 11/19/23[facility] TIA for mini stroke lood pressure high 3 days 07/15/2024 * Family History: M other: , diagnosed with Unspecified essential hypertension. F ather: , heart attack, diagnosed with Unspecified heart disease. * Social History: T obacco Use: T obacco use other than smoking A re you an other tobacco user? N o Tobacco Control (Standard) T obacco use: N onsmoker A dditional Findings: Tobacco non-user C urrent nonsmoker D rugs/Alcohol: D rugs H ave you used drugs other than those for medical reasons in the past 12 months? N o M iscellaneous: C affeine: yes, frequency:, 1 cups per day tea. Children: yes, 1. Exercise: no, Physical Therapy this week. Marital status: . 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 D rug/Alcohol: A DESTINEE-C (Standard) D id you have a drink containing alcohol in the past year? N o P oints 0 I nterpretation N egative * Medications: T akingIsosorbide Mononitrate ER 60 MG Tablet Extended Release 24 Hour 1 tablet in the morning Orally Once a day Vitamin D3 Baby Aspirin busPIRone HCl 10 MG Tablet 1 tablet Orally Twice a day Sertraline HCl 25 MG Tablet 1 tablet Orally Once a day hydrALAZINE HCl Atorvastatin Calcium 40 MG Tablet 1 tablet Orally Once a day Carvedilol 12.5 MG Tablet 1 tablet with food Orally Twice a day Zolpidem Tartrate 10 MG Tablet 1 tablet at bedtime as needed Orally Once a day Taking Isosorbide Mononitrate ER 60 MG Tablet Extended Release 24 Hour 1 tablet in the morning Orally Once a day Taking Vitamin D3 Taking Baby Aspirin Taking busPIRone HCl 10 MG Tablet 1 tablet Orally Twice a day Taking Sertraline HCl 25 MG Tablet 1 tablet Orally Once a day Taking hydrALAZINE HCl Taking Atorvastatin Calcium 40 MG Tablet 1 tablet Orally Once a day Taking Carvedilol 12.5 MG Tablet 1 tablet with food Orally Twice a day Taking Zolpidem Tartrate 10 MG Tablet 1 tablet at bedtime as needed Orally Once a day Not-Taking/PRNLisinopril Aspirin 81 MG Capsule 1 capsule Orally Once a day clonazePAM , Notes to Pharmacist: prnIsosorbide Mononitrate 20 MG Tablet Oral Centrum Silver Vitamin C Fluconazole 150 MG Tablet Oral hydrALAZINE HCl 25 MG Tablet 1 tablet with food Orally Three times a day Multi Vitamin Vitamin D3 Ketoconazole 2 % Cream 1 application Externally Once a day Simvastatin 20 MG Tablet 1 tablet in the evening Orally Once a day Spironolactone 25 MG Tablet 1 tablet Orally Voltaren 1 % Gel as directed Externally Valsartan 80 MG Tablet 1 tablet Orally Once a day Sertraline HCl Doxycycline Hyclate HYDROcodone-Acetaminophen Lansoprazole Omeprazole Triazolam amLODIPine Besylate Losartan Potassium-HCTZ Pettus 3 Vitamin D Vitamin E Tylenol 325 MG Tablet 1 tablet as needed Orally every 6 hrs Medication List reviewed and reconciled with the patientNot-Taking/PRN Lisinopril Not-Taking/PRN Aspirin 81 MG Capsule 1 capsule Orally Once a day Not-Taking/PRN clonazePAM , Notes to Pharmacist: prnNot- Taking/PRN Isosorbide Mononitrate 20 MG Tablet Oral Not-Taking/PRN Centrum Silver Not- Taking/PRN Vitamin C Not-Taking/PRN Fluconazole 150 MG Tablet Oral Not-Taking/PRN hydrALAZINE HCl 25 MG Tablet 1 tablet with food Orally Three times a day Not-Taking/PRN Multi Vitamin Not-Taking/PRN Vitamin D3 Not-Taking/PRN Ketoconazole 2 % Cream 1 application Externally Once a day Not-Taking/PRN Simvastatin 20 MG Tablet 1 tablet in the evening Orally Once a day Not-Taking/PRN Spironolactone 25 MG Tablet 1 tablet Orally Not-Taking/PRN Voltaren 1 % Gel as directed Externally Not-Taking/PRN Valsartan 80 MG Tablet 1 tablet Orally Once a day Not-Taking/PRN Sertraline HCl Not-Taking/PRN Doxycycline Hyclate Not-Taking/PRN HYDROcodone-Acetaminophen Not-Taking/PRN Lansoprazole Not-Taking/PRN Omeprazole Not-Taking/PRN Triazolam Not-Taking/PRN amLODIPine Besylate Not-Taking/PRN Losartan Potassium-HCTZ Not-Taking/PRN Pettus 3 Not-Taking/PRN Vitamin D Not-Taking/PRN Vitamin E Not-Taking/PRN Tylenol 325 MG Tablet 1 tablet as needed Orally every 6 hrs Medication List reviewed and reconciled with the patient * Allergies: V alsartan: coughing - Side Effectsyes[Allergies Verified] Objective: * Vitals: H t: 5ft, Wt: 109, BMI: 21.29, Shoe size: 6W, BP: 130/60 mm Hg, Ht-cm: 152.4 cm, Wt-k.44 kg. * Examination: N eurological: SENSORY: P t relates, hyperesthesia, especially in the evening, B/L, Rearfoot , Neurological exam reveals intact sensorium, pain sensation normal, vibration sensation intact, pinprick sensation is normal in the lower extremities, Pt denies, anesthesia, burning, paresthesia, tingling, B/L. V ascular: DP PULSES (B): 0/4, B/L . PT PULSES (B): 0/4, B/L. CAPILLARY FILL TIME: delayed, all digits, B/L. TROPHIC CONDITION-TEXTURE/ELASTICITY/TURGOR/HAIR GROWTH (B):? decreased, B/L. TEMPERTURE GRADIENT (C): decreased, cool to cool, proximal to distal, B/L. PIGMENTATION: pale, B/L . EDEMA (C): a bsent, B/L. CLAUDICATION (C): d enies, B/L , denies, B/L. REST PAIN: d enies, B/L , denies, B/L. ? G eneral Examination: GENERAL APPEARANCE: Dora paynes a pleasant, alert, well nourished, well-developed, well hydrated individual, who demonstrates proper attention to hygiene/body habitus, and is in no acute distress, Pt serves as own historian for office visit today. ORIENTED: p erson, place, and time. N ails: NAILS are: Elongated, overgrown, dystrophic TA, T1, T2, T3, T4, T5, T6, T7, T8, T9, . D ermatologic: SKIN FINDINGS: Skin exam reveals Keratotic lesion(s) located at SUB MTH (s) 3 , 5 B/L, P lantar Heel(s), B/L, . Assessment: * Assessment: 1. A therosclerosis of artery of both lower extremities - I70.203 (Primary) Plan: * Treatment: * Procedures: K eratoma Treatment: Parring or Cutting of Benign Hyperkeratotic Lesion(s) ( -57) More than 4 Lesions - Due to the at risk nature of the patients medical condition as documented in the exam findings, performance of this keratoderma treatment is medically necessary as its management by an unskilled/untrained nonprofessional would put this patients foot and overall health at risk. Therefore, the benign hyperkeratotic lesions, ( 6 ) in total, locations as stated and described in the exam (SUB MTH (s) 3 5 B/LPlantar Heel(s),B/L,), were pared, and/or cut utilizing a sterile 15 blade, tissue nippers, and/or power dremel instrumentation by the physician of record - [id number]. N ail Reduction: Nail Reduction ( -27) Trimming of all dystrophic nails - Due to the at risk nature of the patients medical condition as documented in the exam findings, performance of this nail treatment is medically necessary as its management by an unskilled/untrained nonprofessional would put this patients foot and overall health at risk. Therefore, the dystrophic nails, in locations as stated and described in the exam ( TA, T1, T2, T3, T4, T5, T6, T7, T8, T9, ), were debrided by the phisician of record to reduce/remove overall nail length and girth, by manual and electrical means with use of a nail nipper and/or dremel, to more viable healthy nail plate or bed tissue - G0127. * Procedure Codes: G 0127 TRIMMING DYSTROPHIC NAILS ANY #, Modifiers: XS , [id number] TRIM SKIN LESIONS, OVER 4, Modifiers: XS , Q8 * Preventive Medicine: Screening/Special Tests: F all Risk Screening: N o falls in the past year F ALLS: Screening for Future Fall Risk Have you had two or more falls in the past year? N o Have you had any falls with injury in the past year? N o * Follow Up: 3 Months * Images: * Sign off status: Completed true * Provider: Nikki Quiles, DPM Date: Generated for Leeann juares/Aneta/Lorena on: 04:22 PM EDT History and Physical Notes * HPI (History of Present Illness) Category Sub-Category Detail Notes Category Not es At Risk footcare Pt States Last PCP Visit: Date: Examination Category Sub-Category Detail Notes Category Not es Neurological SENSORY: Pt relates, hype resthesia, especially in the evening, B/L, Rearfoot , Neurological exam reveals intact sensorium, pain sensation normal, vibration sensation intact, pinprick sensation is normal in the lower extremities, Pt denies, anesthesia, burning, paresthesia, tingling, B/L Dermatologic SKIN FINDINGS: Skin exam reveal s Keratotic lesion(s) located at SUB MTH (s) 3 ,5 B/L, Plantar Heel(s), B/L, General Examination GENERAL APPEARANCE: Reveals a pleasant, alert, well nourished, well-developed, well hydrated individual, who demonstrates proper attention to hygiene/body habitus, and is in no acute distress, Pt serves as own historian for office visit today ORIENTED: person, place, and t gurinder Vascular DP PULSES (B): 0/4, B/L PT PULSES (B): 0/4, B/L CAPILLARY FILL TIME: delayed, all digits , B/L TEMPERTURE GRADIENT (C): decreased, cool to cool, proximal to distal, B/L TROPHIC CONDITION-TEXTURE/ELASTICITY/TURGOR/HAIR GROWTH (B): decreased, B/L EDEMA (C): absent, B/L CLAUDICATION (C): denies, B/L , denies , B/L REST PAIN: denies, B/L , denies , B/L PIGMENTATION: pale, B/L Nails NAILS are: Elongated, overg rown, dystrophic TA, T1, T2, T3, T4, T5, T6, T7, T8, T9,
--- NOTE | ~2025-07-04 | XR_ITS ---
EXAMINATION: XR CHEST CLINICAL INFORMATION: cp COMPARISON: 02/07/2025. TECHNIQUE: Frontal view of the chest was obtained. FINDINGS: Mild cardiac enlargement. Mediastinal and hilar contours are normal. Mitral annular calcification. Aortic mural calcifications. The lungs are clear bilaterally. Calcified granuloma left suprahilar region. No pneumothorax or effusion. No focal osseous or soft tissue abnormality. XR/XR chest 1V IMPRESSION: Mild cardiomegaly. No active pulmonary disease. Electronically signed by: Kwan Barragan MD 07/04/2025 02:07 PM EDT
--- NOTE | 2025-07-04 13:18 | ED.GENADULT ---
HPI - General Adult General Chief complaint: Chest Pain Stated complaint: RESOLVED CP PER EMS Source: patient Mode of arrival: ambulatory Limitations: no limitations History of Present Illness ED Provider: WES Aaron HPI narrative: 84-year-old female hx hld, anxiety, htn presents with substernal nonradiating chest pain that started [facility]. Pain lasted 10-15 minutes and then went away without intervention. She currently reports that she is completely pain-free. Currently feels fine. Was encouraged to come in for evaluation. Her PCI who is at the bedside thinks that this possibly started in the setting of anxiety, they were having a discussion about 's medical issues she got slightly anxious reported chest pain and then later reported it went away. Related Data Home Medications ?Medication ?Instructions ?Recorded ?Confirmed amlodipine 5 mg tablet 5 mg PO DAILY 03/22/24 atorvastatin 40 mg tablet 40 mg PO DAILY 03/22/24 carvedilol 12.5 mg tablet 12.5 mg PO BID 03/22/24 clonazepam 0.5 mg tablet 0.5 mg PO DAILY 03/22/24 polyethylene glycol 3350 17 17 g PO DAILY 03/22/24 gram/dose oral powder zolpidem 10 mg tablet 10 mg PO BEDTIME PRN 03/22/24 Previous Rx's ?Medication ?Instructions ?Recorded famotidine 40 mg tablet 40 mg PO BEDTIME #60 tabs 03/22/24 erythromycin 5 mg/gram (0.5 %) eye 0.5 inch ophthalmic (eye) BID #3.5 06/14/24 ointment grams miconazole nitrate 2 % vaginal 1 appful vaginal BEDTIME 7 days 06/14/24 cream #45 grams alprazolam 0.25 mg tablet (Xanax) 0.25 mg PO BID PRN anxiety #7 tabs 02/07/25 nystatin 100,000 unit/mL oral 400,000 unit (4 mL) PO QID 7 days 02/07/25 suspension #112 mL Allergies Allergy/AdvReac Type Severity Reaction Status Date / Time N.K.D.A. Allergy Unknown Unknown Uncoded 07/04/25 13:38 Review of Systems Review of Systems: Yes all other systems are reviewed and are negative PMFSH Past Medical History Attestation statement: The following information was validated with the patient. Source: old records reviewed and nursing notes reviewed Social History Social History Patient Tobacco Use Status: Never used Tobacco Smoked in Last 30 Days: No Use of substances other than those prescribed or required for medical reasons: No Advance Directives: No Advance Directives Information Provided: Yes Physical Exam ED Exam Exam: Appearance: Alert.? Oriented X3.? No acute distress.? Head: Normocephalic, atraumatic, no step-offs or deformities Eyes: Pupils equal, round and reactive to light.? CVS: Normal heart rate and rhythm.? Pulses normal.? Respiratory: No respiratory distress.? Breath sounds normal.? Abdomen: Soft and nontender.? Skin: Skin warm and dry.? Normal skin color.? Normal skin turgor.? Extremities: No lower extremity edema.? No calf ttp. 5/5 strength to bilateral upper and lower extremities Back: No midline tenderness, no C-spine tenderness, full range of motion, no CVA tenderness bilaterally Neuro: Oriented X 3.? No motor deficit.? No sensory deficit. CN 2-12 intact Vital Signs: Vital Signs - 24 hr 07/04/25 13:35 07/04/25 15:29 07/04/25 15:48 Temperature 97.6 F 97.9 F Pulse Rate 69 75 Respiratory Rate 16 21 H Blood Pressure 167/62 H 209/91 H 209/91 H Pulse Oximetry 96 Oxygen Delivery Method Room Air BMI result Body Mass Index 21.8 vss Course Reevaluation(s) Reevaluation #1: CBC unremarkable. Chemistry with no acute findings needing intervention. Troponin negative x2. PT INR normal. I do not suspect PE on this patient no chest pain or shortness of breath at this time. No tachycardia. Chest x-ray with mild cardiomegaly. Patient's blood pressure better she is asymptomatic denies chest pain, shortness of breath, headache, vision changes, dizziness and weakness.. Educated patient on diagnosis and treatment plan, answered all question, patient verbalizes understanding. At this time patient will be discharged home, advised to return with new or worsening symptoms. Educated on worrisome signs and symptoms and when to return. At this time I feel comfortable discharge home. Time: 16:46 Medications Administered Discontinued Medications Generic Name Dose Route Start Last Admin Trade Name Freq PRN Reason Stop Dose Admin Hydralazine HCl 25 mg 07/04/25 15:33 07/04/25 15:48 Hydralazine Hcl 25 Mg Tablet PO 07/04/25 15:34 25 mg ONCE ONE Administration Protocol Medical Decision Making Medical Decision Making [facility] Narrative: 1334 84 year old female presents for evaluation of a 10-15 minute episode of CP. PE benign Hx and PE concerning for anxiety versus dysrhythmia versus ACS. Unlikely PE, dissection, acute respiratory distress. Plan- labs, imaging, EKG Differential Diagnosis Differential Diagnoses: The differential diagnosis associated with the presentation includes (Hx and PE concerning for anxiety versus dysrhythmia versus ACS. Unlikely PE, dissection, acute respiratory distress.) Admission/Observation Consideration of admission/observation: Escalation of care including admission/observation considered Lab Data [facility] Lab Attestation statement: I reviewed the patient's lab results. 07/04/25 14:07 07/04/25 14:07 Labs: Lab Results 07/04/25 07/04/25 Range/Units 14:07 15:06 WBC 7.8 (4.8-10.8) X10*3/uL RBC 4.02 L (4.20-5.50) X10*6/uL Hgb 12.5 (12.0-16.0) g/dl Hct 37.1 (37.0-47.0) % MCV 92.3 (80.0-98.0) fL MCH 31.1 (27.0-33.0) pg MCHC 33.7 (31.0-35.0) g/dl RDW 13.5 (11.0-16.0) % Plt Count 237 (160-400) X10*3/uL MPV 10.7 (9.4-12.3) fL Immature Gran % (Auto) 0.3 (0.0-0.4) % Neut % (Auto) 59.2 (45-73) % Lymph % (Auto) 30.7 (20-40) % [place] % (Auto) 8.8 (2-11) % Eos % (Auto) 0.6 (0-4) % Baso % (Auto) 0.4 (0-2) % Lymph # (Auto) 2.4 (1.2-4.9) X10*3/uL [place] # (Auto) 0.7 (0.1-1.2) X10*3/uL Eos # (Auto) 0.1 (0.0-0.4) X10*3/uL Baso # (Auto) 0.0 (0.0-0.2) X10*3/uL Abs Immat Gran (auto) 0.02 (0.00-0.03) X10*3/uL Absolute Neuts (auto) 4.6 (2.0-8.3) x10*3/uL Absolute Nucleated RBC 0.000 (0.0-0.012) X10*3/uL Nucleated RBC % (auto) 0.0 (0.0-0.2) /100WBC PT 11.9 (10.9-12.4) SEC INR 1.0 (0.9-1.1) Sodium 139 (135-145) mmol/L Potassium 3.7 (3.3-5.1) mmol/L Chloride 106 (96-108) mmol/L Carbon Dioxide 26 (22-29) mmol/L Anion Gap 11 L (12-20) BUN 18 H (9-16) mg/dL Creatinine 0.66 (0.5-1.4) mg/dL Estim Creat Clear Calc 43.9 Estimated GFR > 60 Random Glucose 107 (60-115) mg/dL Calcium 9.2 (8.4-10.2) mg/dL Magnesium 2.0 (1.6-2.6) mg/dL Total Bilirubin 0.5 (0.0-1.0) mg/dL AST 30 (5-31) U/L ALT 25 (0-31) U/L Alkaline Phosphatase 65 (39-117) U/L Troponin I High Sens < 2.7 < 2.7 (<3.5-17.0) ng/L Total Protein 7.0 (6.5-8.0) g/dL Albumin 4.2 (3.5-5.0) g/dL Independent Interpretation I performed an independent interpretation of an: EKG and Plain X-Ray Radiology Impression Discussion of test interpretation with radiology: I have reviewed the radiologist's reading. External Record Review External record reviewed: Inpatient record, Office record, Outpatient record, Prior outpatient labs, Prior outpatient radiology, Primary care record and Outside ED record Critical Care Time Critical Care Time Critical Care Time: No Discharge Plan Discharge Clinical Impression: Chest pain, Hypertension Patient Disposition: Home, Self-Care Instructions: Chest Pain (ED), Hypertension (ED) Additional Instructions: Take your medications as prescribed. If you were prescribed antibiotics today, it is important that you take your medication to their entirety, do not skip any doses, do not finish them early. Follow-up with your primary care provider this week. Return to the emergency department with new or worsening symptoms. Such as fevers, chills, chest pain, shortness of breath, nausea, vomiting, dizziness, headache, vision changes, lethargy In case of emergency call 911 Prescriptions: No Action nystatin 100,000 unit/mL suspension 400,000 unit PO QID 7 Days Qty: 112 0RF Rx Instructions: swish and swallow alprazolam [Xanax] 0.25 mg tablet 0.25 mg PO BID PRN (Reason: anxiety) Qty: 7 0RF carvedilol 12.5 mg tablet 12.5 mg PO BID zolpidem 10 mg tablet 10 mg PO BEDTIME PRN polyethylene glycol 3350 17 gram/dose powder 17 g PO DAILY clonazepam 0.5 mg tablet 0.5 mg PO DAILY atorvastatin 40 mg tablet 40 mg PO DAILY amlodipine 5 mg tablet 5 mg PO DAILY famotidine 40 mg tablet 40 mg PO BEDTIME Qty: 60 0RF miconazole nitrate 2 % cream 1 appful vaginal BEDTIME 7 Days Qty: 45 0RF erythromycin 5 mg/gram (0.5 %) ointment 0.5 inch ophthalmic (eye) BID Qty: 3.5 0RF Referrals: Kannan Nguyen MD [Primary Care Provider, Medical] Print Language: Mongolian
--- NOTE | 2025-07-04 13:27 | ECG_ITS ---
Test Reason : cp Blood Pressure : */* mmHG Vent. Rate : 70 BPM Atrial Rate : 70 BPM P-R Int : 126 ms QRS Dur : 88 ms QT Int : 464 ms P-R-T Axes : 68 -48 62 degrees QTcB Int : 501 ms Normal sinus rhythm Possible Left atrial enlargement Left anterior fascicular block Possible Anterior infarct , age undetermined Abnormal ECG No previous ECGs available Referred By: Alberto Aaron Electronically Signed By: Danish Rabago
[2025-07-04 13:35] VITALS: BP 167/62; PULSE 69; RESP 16; TEMP 36.4; O2SAT 96; BMI 21.8
[2025-07-04 14:11] LABS: MANUAL DIFF FLAG NO
[2025-07-04 14:17] LABS: Hematocrit 37.1 % (37.0-47.0); Hemoglobin 12.5 g/dl (12.0-16.0); Imm Gran Abs Auto 0.02 X10*3/uL (0.00-0.03); Imm Gran Pct Auto 0.3 % (0.0-0.4); Lymphocytes Absolute Auto 2.4 X10*3/uL (1.2-4.9); Mean Corpuscular HGB Conc 33.7 g/dl (31.0-35.0); Mean Corpuscular Hemoglobin 31.1 pg (27.0-33.0); Mean Corpuscular Volume 92.3 fL (80.0-98.0); NRBC Abs Auto 0.000 X10*3/uL (0.0-0.012); NRBC Pct Auto 0.0 /100WBC (0.0-0.2); Platelet Count 237 X10*3/uL (160-400); Red Blood Count 4.02 X10*6/uL (4.20-5.50); White Blood Count 7.8 X10*3/uL (4.8-10.8)
[2025-07-04 14:31] LABS: Alanine Aminotransferase 25 U/L (0-31); Albumin Level 4.2 g/dL (3.5-5.0); Alkaline Phosphatase 65 U/L (39-117); Anion Gap 11 (12-20); Aspartate Amino Transferase 30 U/L (5-31); Blood Urea Nitrogen 18 mg/dL (9-16); Calcium 9.2 mg/dL (8.4-10.2); Carbon Dioxide 26 mmol/L (22-29); Chloride 106 mmol/L (96-108); Creatinine Clr Calc Pharmacy 43.9; Estimated Glomerular Filt Rate > 60; Magnesium 2.0 mg/dL (1.6-2.6); Potassium 3.7 mmol/L (3.3-5.1); Sodium 139 mmol/L (135-145); Total Protein 7.0 g/dL (6.5-8.0)
[2025-07-04 14:49] LABS: Troponin-I High Sensitivity < 2.7 ng/L (<3.5-17.0)
[2025-07-04 14:53] LABS: INTERNATIONAL NORM RATIO 1.0 (0.9-1.1); Prothrombin Time 11.9 SEC (10.9-12.4)
[2025-07-04 15:29] VITALS: BP 209/91; PULSE 75; RESP 21; TEMP 36.6
[2025-07-04 15:47] VITALS: PULSE 77
[2025-07-04 15:48] VITALS: BP 209/91
[2025-07-04 15:54] LABS: Troponin-I High Sensitivity < 2.7 ng/L (<3.5-17.0)
--- NOTE | 2025-07-04 15:59 | PC.NURSE ---
Assumed care of pt, a&ox4, able to make needs known. Escorted to restroom with walker with no issues. NSR on monitor, hypertensive 200's systolically on both arms. Confirmed adherence to bp meds prescribed. Denies any cp, discomfort, headache blurred vision. PA notified, medicated as per NOV.
--- OUTSIDE RECORDS SUMMARY | 2025-07-04 16:22 | XMS_ITS | Patient Health Record ---
[facility] Address [address] [place] [address] Care Team Providers Care Chargemaster Specialist Name Role Phone Kannan Nguyen MD Primary Care Provider Roxana Del Rio Unavailable [phone] Allergies Allergen (clinical drug ingredient) Drug/Non Drug Allergy documented on EMR Reaction Allergy Type Onset Date Status valsartan Valsartan coughing Drug Allergy Active Reason For Referral No Information Medications Medication SIG (Take, Route, Frequency, Duration) Notes Start Date End Date Status Doxycycline Hyclate Not-Taking HYDROcodone-Acetaminophen Not-Taking Lisinopril Not-Takin g Lansoprazole Not-Sebastian ing hydrALAZINE HCl Acti ve Omeprazole Not-Takin g Atorvastatin Calcium 40 MG 1 tablet Oral ly Once a day Active Triazolam Not-Taking Aspirin 81 MG 1 capsule Orally Onc e a day; Duration: 30 day(s) Not-Taking amLODIPine Besylate Not-Taking Carvedilol 12.5 MG 1 tablet with food Orally Twice a day Active Losartan Potassium-HCTZ Not-Taking Zolpidem Tartrate 10 MG 1 tablet at bedt gurinder as needed Orally Once a day Active Arminto 3 Not-Taking clonazePAM prn Not-Takin g Vitamin D Not-Taking Isosorbide Mononitrate 20 MG Oral; Duration: 30 Days Not-Taking Vitamin E Not-Taking Centrum Silver Not-T aking Vitamin C Not-Taking Tylenol 325 MG 1 tablet as needed Orally every 6 hrs; Duration: 1 dose 06/10/2014 Not-Taking Fluconazole 150 MG Oral; Duration: 2 Not-Taking hydrALAZINE HCl 25 MG 1 tablet with food Orally Three times a day; Duration: 30 day(s) Not-Taking Multi Vitamin Not-Ta rhona Vitamin D3 Not-Takin g Ketoconazole 2 % 1 application Externally Once a day; Duration: 14 day(s) Not-Taking Simvastatin 20 MG 1 tablet in the evening Orally Once a day; Duration: 30 days Not-Takin g Spironolactone 25 MG 1 tablet Orally; Duration: 30 day(s) Not-Taking Isosorbide Mononitrate ER 60 MG 1 tablet in the morning Orally Once a day Active Voltaren 1 % as directed Externally Not-Taking Vitamin D3 Active Valsartan 80 MG 1 tablet Orally Once a day; Duration: 30 day(s) Not-Taking Baby Aspirin Active Sertraline HCl Not-T aking busPIRone HCl 10 MG 1 tablet Orally Twic e a day Active Sertraline HCl 25 MG 1 tablet Orally Onc e a day Active Immunizations Vaccine Route Administration Date Status Comme nts Influenza Unknown 03/18/2025 Refused Social History Tobacco Use: Social History Observation [...] ast year? No Points 0 Interpretation Negative Problems Problem Type SNOMED Code ICD Code Onset Dates Problem Status W/U Status Risk Notes Problem Bilateral atherosclerosis of arteries of lower limbs (disorder) ([id number] ) Atherosclerosis of artery of both lower extremities (I70.203) Active confirmed Vital Signs Blood pressure diastolic 60 mm Hg 07/01/2025 Height 5ft in 07/01/2025 Blood pressure systolic 130 mm Hg 07/01/2025 Weight 109 lbs 07/01/2025 BMI 21.29 kg/m2 07/01/2025 Encounters Encounter Location Date Provider Diagnosis [facility] [address] [address] 07/09/2024 Roxana Perica Atherosclerosis of artery of both lower extremities I70.203 and Muscle cramp, nocturnal R25.[address] [facility] [address] [address] 08/09/2024 Roxana Perica Pain in right foot M79.671 ; Plantar fasciitis, bilateral M72.2 ; Pain in left foot M79.672 ; 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 ; Neuritis of right foot G57.91 and Neuritis of left foot G57.[address] [facility] [address] 10/29/2024 Roxana Perica Pain in right foot M79.671 ; 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 ; Pain in left foot M79.672 ; Neuritis of right foot G57.91 ; Neuritis of left foot G57.92 and Atherosclerosis of artery of both lower extremities I70.[address] [facility] [address] 03/18/2025 Roxana Perica Atherosclerosis of artery of both lower extremities I70.[address] [address] 07/01/2025 Roxana Perica Atherosclerosis of artery of both lower extremities I70.[address] [address] 08/07/2024 Roxana Perica [address] [address] 08/14/2024 [facility] [address] 01/21/2025 Roxana Leonardoa Assessments Encounter Date Diagnosis (ICD Code) Assessment Notes Treatment Notes Treatment Clinical Notes Section Notes 07/09/2024 Atherosclerosis of artery of both lower extremities (ICD-10 - I70.203) 08/09/2024 Pain in right foot (ICD-10 - M79.671) 10/29/2024 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) 08/09/2024 Plantar fasciitis, bilateral (ICD-10 - M72.2) Patient Educated with: HEEL CORD STRETCHES.pdf (HEEL CORD STRETCHES.pdf ) Patient Educated with: RICE THERAPY.pdf (RICE THERAPY.pdf) 10/29/2024 Pain in right foot (ICD-10 - M79.671) 03/18/2025 Atherosclerosis of artery of both lower extremities (ICD-10 - I70.203) 07/01/2025 Atherosclerosis of artery of both lower extremities (ICD-10 - I70.203) 10/29/2024 Pain in left foot (ICD-10 - M79.672) 08/09/2024 Pain in left foot (ICD-10 - M79.672) 07/09/2024 Muscle cramp, nocturnal (ICD-10 - R25.2) 08/09/2024 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) 10/29/2024 Neuritis of right foot (ICD-10 - G57.91) 10/29/2024 Neuritis of left foot (ICD-10 - G57.92) 08/09/2024 Neuritis of right foot (ICD-10 - G57.91) 08/09/2024 Neuritis of left foot (ICD-10 - G57.92) 10/29/2024 Atherosclerosis of artery of both lower extremities (ICD-10 - I70.203) 10/29/2024 Other Plan Of Treatment Pending Test Test Name Order Date X ray : Foot, left 3V 06/14/2022 X ray : Foot, left 3V 03/14/2023 X ray : Foot, right 3V 03/14/2023 X ray : Foot, right 3V 06/14/2022 [id number] Plate 06/10/2014 [id number], [id number]/INJECT, JOINT/BURSA 0 01/17/2023 Next Appt Details Provider Name:Roxana avery, 10/10/2025 11:00:00 AM, [address] [place], [address], Insurance Providers Payer Name Payer Address Payer Phone Subscriber Number Group Number Insured Name Patient Relationship to Insured Coverage Start Date Coverage End Date Medicare National [facility] [address] [place] [phone] [id number] Stephanie Gray Self - patient is the insured [facility] [address] [place] [address] [id number] Balbir Gray Spouse - patient is the spouse of the insured Medical (General) History Medical History History ICD Code Hypertension Hyperlipidemia Insomnia Anxiety Back pain Arthritis Measles Hernia Cataracts Headaches/Migraines Heart murmur Hiatal hernia High blood pressure Osteoporosis Transfusions Heart attack pressure ulcer -butt Stroke Surgical History Surgery Date(Month/Year) appendectomy 1939 section 1963 cataract surgery 1961 Both eyes surgery 1991 colon surgery- ostemy bag - fall 2022 mini stroke 2023 Hospitalization History Reason Date(Month/Year) blood pressure high 3 days 07/15/2024 [facility] TIA for mini stroke 2023 [facility]- colon burst 11/19/23 [facility]- Diverticulitis 12/09 [facility]- Heart attack- pneumonia 10/11
--- OUTSIDE RECORDS SUMMARY | 2025-07-04 16:22 | XMS_ITS | Data Portability ---
Author Organization MD - [facility], Allergy Address [address] [address] Care Team Providers Care Post Office Manager Name Role Phone J CARLOS ARELLANO Primary Care Provider Assessment Encounter Date Assessment Date Assessment LastModified by Organization Details LastModified Time 01/07/2025 01/07/2025 84yo female presents for evaluation of voice change x3 weeks. She denies pharyngitis, globus sensation, dysphagia, or choking. Fiberoptic laryngoscopy is benign with symmetric vocal cord mobility. No paradoxical vocal cord dysfunction, labored breathing, coughing, or wheezing on exam. We discussed her presentation is most consistent with vocal fatigue. This occurs when the muscles in and around the vocal cords naturally weaken and lose mass with age, making it harder for them to close completely and vibrate properly. This process leads to a strained voice that tires quickly when speaking due to the increased effort needed to produce sound. We discussed that she may benefit from speech therapy to learn exercises and techniques to use the voice more efficiently, reducing strain on the vocal cords. This is accomplished through proper breathing techniques, relaxation exercises, and targeted vocal exercises like lip trills or straw phonation. Patient is not interested in speech therapy at this time. Will defer to her PCP to discuss dyspnea. [email or web address] Not available 01/07/2025 14:34:51 05/22/2025 05/22/2025 Follow up with referring provider. 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 Otologic exam demonstrates TMs are intact with well-aerated middle ear spaces. 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 We discussed patient is borderline candidate for amplification, but she is not interested at this time. Today we discussed the pathophysiology of tinnitus and the absence of consistently successful pharmacologic treatments. Recommend masking strategies to decrease awareness of the tinnitus, including using a white noise machine, music, or television.We discussed how exposure to loud noise can worsen tinnitus so I recommended hearing protection. We also discussed other ways to potentially help reduce awareness of tinnitus including avoidance of caffeine, salty meals and NSAIDs. Recommend follow up in 1-2 years with repeat audiometric testing, or sooner with any concerns. [email or web address] Not available 05/22/2025 12:22:22 Plan of Treatment Reminders Order Date Submit Date Provider Last Modified By Organization Details Last Modified Time Details Appointments None record ed. Lab None record ed. Referral None record ed. Procedures None record ed. Surgeries None record ed. Imaging None record ed. Medication Orders None record ed. Patient TargetsNo targets recorded. Patient InstructionsNo instructions recorded. Reason for Referral None Reported. Results Created Date Observation Date Name Description Value Unit Range Abnormal Flag Note LastModifiedBy Organization Detail LastModifiedTime 03/13/20 audio gram No observ ation record ed. [email or web address] Not Available 02/17 16:32:42 05/09/20 24 03/06/2023 imagi ng/di agnos tic resul t No observ ation record ed. [email or web address] Not Available 15:37:51 05/09/20 24 07/04/2022 imagi ng/di agnos tic resul t No observ ation record ed. [email or web address] Not Available 15:38:00 05/09/20 24 03/06/2023 audio gram No observ ation record ed. [email or web address] Not Available 15:38:05 05/09/20 24 07/04/2022 audio gram No observ ation record ed. [email or web address] Not Available 15:38:07 05/22/20 audio gram No observ ation record ed. [email or web address] Not Available 2024 13:43:57 Result Notes None recorded. Problems Name Problem SNOMED Code Status Onset Date Resolution Date Notes Provider Name and Address Organization Details Recorded Time Sensorine ural hearing loss of bilateral ears 564643671 Active 2021 Sensorine ural hearing loss, bilateral ; Note: Date Diagnosed : 2 2:30 PM (H90.3) Not Available [facility] 4 02:52:00 Impacted cerumen of bilateral ears 84376464233 20639 Active 2021 Impacted cerumen, bilateral ; Note: Date Diagnosed : 2 2:30 PM (H61.23) Not Available [facility] 4 02:51:58 Vocal fatigue 6286102 Active 2024 ROCKY RUFF PA-C [address] [facility] [address] [facility], [facility] [place], [address] , [place] - [facility] 5 14:34:46 Sensorine ural hearing loss of bilateral ears 511767293 Active 2024 Lela JONES [address] [facility] [address] [address], [facility] [place], [address] , [place] - [facility] 5 11:51:44 Bilateral tinnitus 56818207446 02 Active 2024 ROCKY RUFF PA-C [address] [facility] [place] [facility], [facility] [place], [address] , [place] - [facility] 12:22:44 Problem Notes None recorded. Procedures Surgical History Date Name Laterality Status Provider Name and Address Organization Details Recorded Time 05/22/20 25 Air & Speech Audio with Tymps - 77004, 87143 & 35398 completed GREGG PIKE AuD [address], [place], [address], [place] - [facility] 05/22/2025 11:51:26 01/08/20 25 FOL_DP completed ROCKY RUFF PA-C [address] [facility] [address], [place], [address], [place] - [facility] 01/07/2025 13:57:41 03/12/20 24 Air only Audio - 60571 completed Lizabeth Granger [place] - [facility] 03/12/2024 15:00:01 03/12/20 24 Tympanometry - 88278 completed Lizabeth Granger [place] - [facility] 03/12/2024 14:59:55 03/12/20 24 SRT & Speech Recognition - 78872 completed Lizabeth Granger [place] [facility] 03/12/2024 14:59:57 Imaging Results None recorded. Procedure Notes None recorded. Medical Equipment None Reported. Allergies No known drug allergies Medications Name Sig Start Date Stop Date Status Note LastModified by Organization Details LastModified Time celecoxib 200 mg capsule 03/06 completed Medicati on ID: [id number] B rand Name: celecoxi b Send Method: E-Prescr ibed Sub s Allowed: subs OK [facility] celecoxi b Not Available Not Available Not Available atorvasta tin 40 mg tablet TAKE 1 TABLET BY MOUTH DAILY active Not Available Not Available No t Available buspirone 5 mg tablet TAKE 1 TABLET BY MOUTH TWICE DAILY active Not Available Not Available No t Available carvedilo l 25 mg tablet TAKE 1/2 TABLET BY MOUTH TWICE DAILY active Not Available Not Available No t Available nystatin 100,000 unit/mL oral suspensio n SWISH AND SWALLOW 4 ML BY MOUTH FOUR TIMES DAILY FOR 7 DAYS active Not Available Not Available No t Available acetamino phen 325 mg tablet TAKE 2 TABLETS BY MOUTH EVERY 6 HOURS FOR 3 DAYS 01/07 completed Not Available Not Available Not Available carvedilo l 6.25 mg tablet TAKE 1 TABLET BY MOUTH TWICE DAILY 01/07 completed Not Available Not Available Not Available carvedilo l 12.5 mg tablet TAKE 1 TABLET BY MOUTH TWICE DAILY active Not Available Not Available No t Available lisinopri l 20 mg-hydroc hlorothia zide 12.5 mg tablet 03/06 completed Medicati on ID: [id number] B rand Name: lisinopr il-hydro chloroth iazide S end Method: E-Prescr ibed Sub s Allowed: subs OK Medic ationGen ericName : lisinopr il-hydro chloroth iazide Not Available Not Available Not Available isosorbid e mononitra te 20 mg tablet TAKE 1 TABLET BY MOUTH IN THE EVENING 01/07 completed Not Available Not Available Not Available fluconazo le 150 mg tablet TAKE 1 TABLET BY MOUTH DAILY FOR 2 DAYS active Not Available Not Available No t Available senna 8.6 mg tablet TAKE 1 TABLET BY MOUTH DAILY active Not Available Not Available No t Available famotidin e 40 mg tablet TAKE 1 TABLET BY MOUTH AT BEDTIME 01/07 completed Not Available Not Available Not Available isosorbid e mononitra te ER 30 mg tablet,ex tended release 24 hr TAKE 1 TABLET BY MOUTH DAILY IN THE EVENING 01/07 completed Not Available Not Available Not Available clonazepa m 0.5 mg tablet TAKE 1/2 TABLET BY MOUTH TWICE DAILY NEEDED. MAY TAKE 1 1 TABLET DAILY NEEDED active Not Available Not Available No t Available miconazol e nitrate 2 % vaginal cream INSERT 1 APPLICAT ORFUL VAGINALL Y AT BEDTIME FOR 7 DAYS 01/07 completed Not Available Not Available Not Available valsartan 80 mg tablet active Medicati on ID: [id number] B rand Name: valsarta n Send Method: E-Prescr ibed Sub s Allowed: subs OK Medic ationGen ericName : valsarta n Not Available Not Available Not Available hydralazi ne 25 mg tablet TAKE 1 TABLET BY MOUTH TWICE DAILY TAKE WITH 50 MG DOSE. TOTAL DOSE IS 75 MG active Not Available Not Available No t Available metronida zole 500 mg tablet TAKE 1 TABLET BY MOUTH EVERY 12 HOURS LAST DOSE 12/13/23 AFTER MORNING DOSE. MAY. TAKE WITH FOOD TO MINIMIZE ABDOMINA L DISCOMFO RT 01/07 completed Not Available Not Available Not Available clopidogr el 75 mg tablet TAKE 1 TABLET BY MOUTH DAILY active Not Available Not Available No t Available ciproflox acin 250 mg tablet TAKE 1 TABLET BY MOUTH EVERY 12 HOURS FOR 7 DAYS 01/07 completed Not Available Not Available Not Available amlodipin e 5 mg tablet TAKE 1 TABLET BY MOUTH DAILY 01/07 completed Not Available Not Available Not Available aspirin 81 mg tablet,de layed release TAKE 1 TABLET BY MOUTH DAILY active Not Available Not Available No t Available doxycycli ne monohydra te 100 mg tablet TAKE 1 TABLET BY MOUTH EVERY 12 HOURS FOR 7 DAYS. MAY TAKE WITH FOOD TO MINIMIZE ABDOMINA L DISCOMFO RT 01/07 completed Not Available Not Available Not Available tramadol 50 mg tablet TAKE 1 TABLET BY MOUTH EVERY 4 HOURS FOR 3 DAYS NEEDED FOR MODERATE PAIN. NOT TO EXCEED 400 MG DAILY 01/07 completed Not Available Not Available Not Available spironola ctone 25 mg tablet 01/07 completed Medicati on ID: [id number] B rand Name: spironol actone S end Method: E-Prescr ibed Sub s Allowed: subs OK Medic ationGen ericName : spironol actone Not Available Not Available Not Available isosorbid e mononitra te ER 60 mg tablet,ex tended release 24 hr TAKE 1 TABLET BY MOUTH DAILY IN THE MORNING active Not Available Not Available No t Available alprazola m 0.25 mg tablet TAKE 1 TABLET BY MOUTH TWICE DAILY NEEDED FOR ANXIETY active Not Available Not Available No t Available amlodipin e 10 mg tablet TAKE 1 TABLET BY MOUTH EVERY DAY 01/07 completed Not Available Not Available Not Available cephalexi n 500 mg capsule TAKE 1 CAPSULE BY MOUTH TWICE A DAY FOR 5 DAYS 01/07 completed Not Available Not Available Not Available simvastat in 20 mg tablet 01/07 completed Medicati on ID: [id number] B rand Name: simvasta tin Send Method: E-Prescr ibed Sub s Allowed: subs OK Medic ationGen ericName : simvasta tin Not Available Not Available Not Available erythromy toro 5 mg/gram (0.5 %) eye ointment active Not Available Not Available Not Available neomycin- polymyxin -dexameth 3.5 mg/mL-10, 000 unit/mL-0 .1% eye drops SHAKE LIQUID AND INSTILL 1 DROP IN BOTH EYES THREE TIMES DAILY FOR 1 WEEK 01/07 completed Not Available Not Available Not Available buspirone 10 mg tablet TAKE 1 TABLET BY MOUTH TWICE DAILY active Not Available Not Available No t Available clotrimaz ole-betam ethasone 1 %-0.05 % topical cream APPLY 1 APPLICAT ION TOPICALL Y TO THE AFFECTED AREA TWICE DAILY active Not Available Not Available No t Available lidocaine 5 % topical patch APPLY 1 PATCH TOPICALL Y TO THE SKIN EVERY MORNING active Not Available Not Available No t Available losartan 25 mg tablet TAKE 1 TABLET BY MOUTH DAILY active Not Available Not Available No t Available docusate sodium 100 mg capsule TAKE 1 CAPSULE BY MOUTH TWICE DAILY FOR 7 DAYS 01/07 completed Not Available Not Available Not Available sertralin e 25 mg tablet TAKE 1 TABLET BY MOUTH DAILY active Not Available Not Available No t Available hydralazi ne 50 mg tablet TAKE 1 TABLET BY MOUTH TWICE DAILY TAKE WITH THE 25 MG DOSE. TOTAL DOSAGE IS 75 MG active Not Available Not Available No t Available polyethyl tereso glycol 3350 17 gram/dose oral powder MIX 17 GRAMS IN 8 OUNCES OF WATER OR JUICE AND TAKE BY MOUTH DAILY active Not Available Not Available No t Available estradiol 0.01% (0.1 mg/gram) vaginal cream INSERT 0.5 GRAM VAGINALL Y 2 TIMES A WEEK AT BEDTIME active Not Available Not Available No t Available zolpidem 10 mg tablet TAKE 1 TABLET BY MOUTH EVERY NIGHT AT BEDTIME active Not Available Not Available No t Available ketoconaz ole 2 % topical cream APPLY SPARINGL Y TWICE DAILY TO LOWER ABDOMEN AREA NEEDED active Not Available Not Available No t Available clotrimaz ole 1 % topical cream active Medicati on ID: [id number] B rand Name: clotrima zole Sen d Method: E-Prescr ibed Sub s Allowed: subs OK Medic ationGen ericName : clotrima zole Not Available Not Available Not Available lisinopri l 2.5 mg tablet TAKE 1 TABLET BY MOUTH DAILY active Not Available Not Available No t Available amoxicill in 875 mg-potass ium clavulana te 125 mg tablet TAKE 1 TABLET BY MOUTH TWO TIMES A DAY WITH FOOD OR MILK FOR 5 DAYS - START TAKING TOMORROW 10/11/2301/07 completed Not Available Not Available Not Available nabumeton e 500 mg tablet 03/06 completed Medicati on ID: [id number] B rand Name: jonn hewitt Send Method: E-Prescr ibed Sub s Allowed: subs OK Medic ationGen ericName : nabumeto ne Not Available Not Available Not Available Flowflex COVID-19 Antigen Home Test kit 03/06 completed Medicati on ID: [id number] B rand Name: Flowflex COVID-19 Ag Home Test Sen d Method: E-Prescr ibed Sub s Allowed: subs OK Medic ationGen ericName : Flowflex COVID-19 Ag Home Test Not Available Not Available Not Available tramadol 25 mg tablet TAKE 1 TABLET BY MOUTH EVERY 8 HOURS NEEDED FOR PAIN. NOT TO EXCEED 400 MG DAILY 01/07 completed Not Available Not Available Not Available Vitals Date Recorded Body height Provider Name an d Address Organization Details Last Updated DateTime 01/07/2025 152.4 cm ZOEY BAL MD - [facility] 01/07/2025 13:26:47 Date Recorded Body height Body mass index (BMI) Body weight Provider Name and Address Organization Details Last Updated DateTime 03/12/2024 152.4 cm 20.5 kg/m2 20312.2 g Suzannaellie Garber MD - [facility] 03/12/2024 15:02:01 Date Recorded Body height Body mass index (BMI) Body weight Provider Name and Address Organization Details Last Updated DateTime 05/22/2025 152.4 cm 19.5 kg/m2 76922.24 g Nuria Trey [facility] 05/22/2025 11:50:35 Social History None recorded. Functional Status None recorded. Mental Status None recorded. Family History Nothing Reported. Medical History No medical history recorded. Gynecological HistoryNo gynecological history recorded. Obstetrics History GPAL:G 0 P 0 0 0 0 Past Encounters Encounter ID Performer Location Encounter Start Date Encounter Closed Date Diagnosis/Indication Diagnosis SNOMED-CT Code Diagnosis ICD10 Code Diagnosis IMO Codes Diagnosis Note [id number] RICCO SCHILLING MD [facility] [address] [address] 03/12/2024 14:09:34 03/12/2024 15:12:04 Sensorineural hearing loss of bilateral ears 620985830 H90.3 Hearing stable. Retest in 1 year. No interventi on needed. [id number] LELA DON [facility] [address] [address] 03/12/2024 14:58:34 03/12/2024 17:54:47 Sensorineural hearing loss of bilateral ears 089024094 H90.3 Audiologic al evaluation results: Right ear: Mild sloping to moderately severe sensorineu ral hearing loss with excellent word recognitio n. Left ear: Mild raising to normal at 3kHz sloping to moderately severe sensorineu ral hearing loss with excellent word recognitio n. Tympanomet ry: Right Ear:[place] [id number] ROCKY RUFF PA-C [facility] [address] [address] 01/07/2025 13:22:09 01/07/2025 14:00:36 Vocal fatigue 7023432 R49.8 [id number] ROCKY RUFF PA-C [facility] [address] [address] 05/22/2025 10:32:56 05/22/2025 12:27:10 Sensorineural hearing loss of bilateral ears 151863305 H90.3 22470260 Bilateral tinnitus 70670 99538 102 H93.13 778108 [id number] Lela JONES [facility] [address] [address] 05/22/2025 11:44:58 05/25/2025 13:29:11 Sensorineural hearing loss of bilateral ears 833060096 H90.3 35525982 Essentiall y mild sensorineu ral hearing loss rising to normal hearing sloping to severe sensorineu ral hearing loss, bilaterall y. Type As, bilaterall y. Health Concerns Section Related Observation LastModified by Organization Detai ls LastModified Time None Recorded Concern Status LastModified by Organization Details LastModified Time None Recorded Advance Directives Directive None Recorded Payers Insurance Date Sequence Insurance Name Policy Number Policy Tang Covered Member ID Tang Member ID Guarantor Name 05/22/2025 2 [facility] [employer] Balbir Gray [id number] Stephanie Gray 05/22/2025 1 [place] Stephanie Gray [id number] Stephanie Gray 01/07/2025 2 [facility] Balbir Gray [id number] Stephanie Gray Notes Date Note Type Note Provider Name and Address Organization Details Recorded Time 4 text/html ROS as noted in the HPI Hx of SNHL AU. No significant changes over the last year. Audio today shows stable hearing. RICCO SCHILLING MD [address] [address], [place], [address], [facility] - [facility] 03/13/2024 12:30:35 5 text/html ROS as noted in the HPI 84yo female presents with friend for evaluation of voice change x3 weeks. The patient reports worsening voice weakness throughout the day. She denies recent upper respiratory infection or history of acid reflux. No inciting events. She continues to endorse the sensation of runny nose. Denies throat pain, globus sensation, difficulty swallowing liquids or solids, or choking. She endorses difficulty breathing, worse with talking and walking. She was recently seen at [facility] emergency department for this concern. Cardiac workup was benign, and she was told her dyspnea is anxiety mediated. No history of smoking. No seasonal allergies. No prior head or neck surgery. 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 She reports hearing and bilateral tinnitus are stable. She describes the tinnitus as a dull drumming sound in both ears, and clicking only on the left. Denies ear pain, drainage, or associated dizziness. Denies prior history of ear infections or ear surgeries. JEANETH OSCAR MD 100 [facility],[address], [address], [facility] 05/22/2025 17:39:29 5 text/html Audiological Evaluation HPIReported by PatientTinnitusFor tinnitus reported, patient reportsboth ears. For sounds like, patient reportsclicking,heart beat, andpulsatile.Past Audiological Evaluation ResultsFor past audiological evaluation results, patient reportssensorineural hearing loss (both ears)but reportsamplification has not been recommended. Lela JONES [address] [facility],[address], [address], [facility] 05/22/2025 11:58:05 OBGyn Episode No OBEpisode recorded.
--- OUTSIDE RECORDS SUMMARY | 2025-07-04 16:24 | XMS_ITS | Patient Health Record ---
Author Organization [facility] Address [address] [place] [address] Care Team Providers Care Preventive Maintenance Coordinator Name Role Phone Ja (RETIRED) Al GARAY Primary Care Provide Alex Odonnell Jr Unavailable [phone] Reason For Referral No Information Medications Medication SIG (Take, Route, Frequency, Duration) Notes Start Date End Date Status Multi Vitamin/Minerals Orally Active Petrolia 3 1000 MG 1 capsule Orally Onc e a day Active Zolpidem Tartrate 10 MG 1 tablet at bedt gurinder as needed Orally Once a day Active clonazePAM 0.5 MG 1 tablet Orally prn Active Zinc Active Aspir-81 81 MG 1 tablet Orally Once a day Active Vitamin E 1000 UNIT 1 capsule Orally Onc e a day Active Vitamin D 1000 UNIT 1 tablet Orally Once a day Active Losartan Potassium-HCTZ 100-25 MG 1 tablet Orally Once a day A ctive Problems Problem Type SNOMED Code ICD Code Onset Dates Problem Status W/U Status Risk Notes Problem Colitis (85501000) Colitis (558.9) Active confirmed Plan Of Treatment No Information Insurance Providers Payer Name Payer Address Payer Phone Subscriber Number Group Number Insured Name Patient Relationship to Insured Coverage Start Date Coverage End Date MEDICARE OF [place] [address] [facility] [place] [address] [phone] [id number] MARTIN CONDE Self - patient is the insured [facility] [address] [place], [place] [id number] [phone] [id number] AMAYA, MARTIN Self - patient is the insured Medical (General) History Medical History History ICD Code hypertension anxiety degenerative joint disease insomnia Surgical History Surgery Date(Month/Year) appendectomy 1940's section 1963 cataract-lens implants- both eyes 994 cyst removal-right breast 1961
[2025-07-04 17:06] VITALS: BP 196/77; PULSE 76; RESP 16; TEMP 36.8; O2SAT 95
== END 2025-07-04 17:08 | disposition home or self-care (01) ==
PROVIDERS: Physician Assistant; Emergency Provider Emergency Medicine; PCP Internal Medicine
DX: R07.89 Other chest pain (principal); F41.9 Anxiety disorder, unspecified; I10 Essential (primary) hypertension; Z79.899 Other long term (current) drug therapy
CPT/HCPCS: 36415; 71045; 80053; 83735; 84484; 85025; 85610; 93005; 99283; 99284

== ENCOUNTER → 2025-07-04 13:27 | Outpatient (BNV) | payer MEDICARE, BC, SELFPAY | PROVIDERS: Emergency Provider Emergency Medicine; PCP Internal Medicine; Visit Provider Internal Medicine Cardiovascular Disease | DX: I44.4 Left anterior fascicular block (principal) | CPT/HCPCS: 93010 ==

== ENCOUNTER → 2025-07-04 13:27 | Outpatient (BNV) | payer MEDICARE, BC, SELFPAY | PROVIDERS: Emergency Provider Emergency Medicine; PCP Internal Medicine; Visit Provider Radiology Diagnostic Radiology | DX: I51.7 Cardiomegaly (principal) | CPT/HCPCS: 71045 ==

== ENCOUNTER 2025-09-12 15:22 | Emergency (ER) | payer MEDICARE, BC, SELFPAY ==
--- OUTSIDE RECORDS SUMMARY | 2024-06-14 08:15 | XMS_ITS ---
Author Organization [facility] Address [address] [place] [address] Care Team Providers Care Customs Compliance Director Name Role Phone Kannan Nguyen MD Primary Care Provider Roxana Del Rio [phone] REASON FOR VISIT Seen Sooner Encounters Encounter Location Date Provider Diagnosis [address] [address] 06/14/2024 Roxana Quiles Plan Of Treatment Next Appt Details Provider Name:Roxana avery, 10/10/2025 11:00:00 AM, [address] [place], [address], Progress Notes * Stephanie GARY MDOB: [birth year] (85 yo F)Acc No.[id number]:06/14/2024 Progress Note Patient: Charlene RIDERStephanie Avery Provider: Nikki Quiles DPM :1940 A ge:83 Y S ex:Female Date:06/14/2024 Address: [id number] Pcp:Kannan Nguyen MD Subjective: * Chief Complaints: * 1 . Seen Sooner. * Medical History: Objective: * Vitals: Assessment: Plan: * Treatment: * Images: * The named appointment provid er may or may not be the originator of this progress note, and it is not deemed complete until electronically signed by the appointment provider. Sign off status: Pending * Provider: Nikki Quiles, ONESIMO Date: 0 06/14/2024 Generated for Leeann juares/Aneta/Lorena on: 1 11/13/2024 05:11 PM EST
--- OUTSIDE RECORDS SUMMARY | 2024-08-09 07:00 | XMS_ITS ---
Author Organization [facility] Address [address] [place] [address] Care Team Providers Care Supervisor Fish Bait Processing Name Role Phone Kannan Nguyen MD Primary Care Provider Roxana Del Rio [phone] REASON FOR VISIT Seen Sooner Encounters Encounter Location Date Provider Diagnosis [address] [address] 08/09/2024 Roxana Quiles Plan Of Treatment Next Appt Details Provider Name:Roxana avery, 10/10/2025 11:00:00 AM, [address] [place], [address], Progress Notes * Stephanie GRAY MDOB: [birth year] (85 yo F)Acc No.[id number]:08/09/2024 Progress Note Patient: Charlene RIDERStephanie Avery Lon Provider: Nikki Quiles DPM :1940 A ge:84 Y S ex:Female Date:08/09/2024 Address: [id number] Pcp:Kannan Nguyen MD Subjective: * Chief Complaints: [...] Pending * Provider: Nikki Quiles, ONESIMO Date: 1 10/09/2023 Generated for Leeann juares/Aneta/Lorena on: 11/13/2024 05:10 PM EST
--- OUTSIDE RECORDS SUMMARY | 2024-09-10 05:30 | XMS_ITS ---
Author Organization [facility] Address [address] [place] [address] Care Team Providers Care Treating Engineer Helper Name Role Phone Kannan Nguyen MD Primary Care Provider Roxana Del Rio [phone] Encounters Encounter Location Date Provider Diagnosis [address] [address] 09/10/2024 Roxana Quiles Plan Of Treatment Next Appt Details Provider Name:Roxana avery, 10/10/2025 11:00:00 AM, [address] [place], [address], Progress Notes * Stephanie GRAY MDOB: [birth year] (85 yo F)Acc No.[id number]:09/10/2024 Progress Note Patient: Charlene RIDERStephanie Avery Lon Provider: Nikki Quiles DPM :1940 A ge:84 Y S ex:Female Date:09/10/2024 Address: [address] [id number] Pcp:Kannan Nguyen MD Subjective: * Chief Complaints: * * Medical History: Objective: * Vitals: Assessment: Plan: * Treatment: * Images: * The named appointment provid er may or may not be the originator of this progress note, and it is not deemed complete until electronically signed by the appointment provider. Sign off status: Pending * Provider: Nikki Quiles DPM Date: 11/11/2023 Generated for Leeann juares/Aneta/Lorena on: 11/13/2024 05:11 PM EST
--- OUTSIDE RECORDS SUMMARY | 2025-01-28 06:30 | XMS_ITS ---
Author Organization [facility] Address [address] [place] [address] Care Team Providers Care Provider Education Specialist Name Role Phone Kannan Nguyen MD Primary Care Provider Roxana Del Rio [phone] Encounters Encounter Location Date Provider Diagnosis [address] [address] 01/28/2025 Roxana Quiles Plan Of Treatment Next Appt Details Provider Name:Roxana avery, 10/10/2025 11:00:00 AM, [address] [place], [address], Progress Notes * Stephanie GRAY MDOB: [birth year] (85 yo F)Acc No.[id number]:01/28/2025 Progress Note Patient: Charlene RIDERStephanie Avery Lon Provider: Nikki Quiles DPM :1940 A ge:84 Y S ex:Female Date:01/28/2025 Address: [address] [id number] Pcp:Kannan Nguyen MD Subjective: * Chief Complaints: * * Medical History: Objective: * Vitals: Assessment: Plan: * Treatment: * Images: * The named appointment provid er may or may not be the originator of this progress note, and it is not deemed complete until electronically signed by the appointment provider. Sign off status: Pending * Provider: Nikki Quiles DPM Date: 0 01/28/2025 Generated for Leeann juares/Aneta/Lorena on: 1 11/13/2024 05:11 PM EST
--- NOTE | ~2025-09-12 | XR_ITS ---
EXAMINATION: XR CHEST CLINICAL INFORMATION: sob COMPARISON: X-ray 07/04/2025 TECHNIQUE: Frontal view of the chest was obtained. FINDINGS: The lungs are well-expanded. There is no focal consolidation, edema or effusion. Redemonstrated is calcified granuloma left suprahilar region. No pneumothorax. Stable mild cardiomegaly. Aortic arch calcification. No acute osseous abnormality. XR/XR chest 1V IMPRESSION: No acute pulmonary disease. Electronically signed by: Evan Singleton MD 09/12/2025 04:30 PM EST
--- NOTE | 2025-09-12 15:30 | ECG_ITS ---
Test Reason : sob Blood Pressure : */* mmHG Vent. Rate : 78 BPM Atrial Rate : 78 BPM P-R Int : 138 ms QRS Dur : 88 ms QT Int : 442 ms P-R-T Axes : 67 -43 58 degrees QTcB Int : 503 ms Normal sinus rhythm with sinus arrhythmia Possible Left atrial enlargement Left axis deviation Prolonged QT Abnormal ECG When compared with ECG of 04-Jul-2025 13:37, No significant change was found Referred By: Generic ED Physician Electronically Signed By: EVELIO BOUDREAUX MD
[2025-09-12 15:37] VITALS: BP 182/102; PULSE 83; O2SAT 97
[2025-09-12 15:50] VITALS: BP 230/97; PULSE 81; RESP 18; TEMP 36.3; O2SAT 95; BMI 19.5
--- NOTE | 2025-09-12 16:29 | ED.GENADULT ---
HPI - General Adult General Chief complaint: Dyspnea Stated complaint: SOB, 2 WEEKS, SAYS HERNIA CAUSING SOB Time Seen by Provider: 09/12/25 16:29 History of Present Illness ED Provider: Juventino GALICIA narrative: The patient is an 85-year-old woman who comes to the emergency room because of problems with shortness of breath. Apparently she has been feeling short of breath for several months, possibly worse over the last 2 weeks. The patient also admits to problems with anxiety. Apparently the patient has been on clonazepam for several years. This had originally been prescribed by her primary care doctor. Apparently recently her primary care doctor announced that he was no longer comfortable prescribing the clonazepam and so she went to see a mental health prescriber to take over the service. Apparently they has been trying to wean her off clonazepam. She has been started on buspirone. The patient tells me that she has not taken any clonazepam for several days. She says that she had more shortness of breath than usual yesterday evening. Ultimately she went to bed and she says that she slept reasonably well. She is on zolpidem. She was concerned about how short of breath she felt yesterday evening and decided to come to the emergency room today for evaluation of the symptoms. Her daughter is here at the bedside and confirms that the patient has been extremely anxious. She's on the ceiling. Related Data Home Medications ?Medication ?Instructions ?Recorded ?Confirmed amlodipine 5 mg tablet 5 mg PO DAILY 03/22/24 atorvastatin 40 mg tablet 40 mg PO DAILY 03/22/24 carvedilol 12.5 mg tablet 12.5 mg PO BID 03/22/24 clonazepam 0.5 mg tablet 0.5 mg PO DAILY 03/22/24 polyethylene glycol 3350 17 17 g PO DAILY 03/22/24 gram/dose oral powder zolpidem 10 mg tablet 10 mg PO BEDTIME PRN 03/22/24 Previous Rx's ?Medication ?Instructions ?Recorded famotidine 40 mg tablet 40 mg PO BEDTIME #60 tabs 03/22/24 erythromycin 5 mg/gram (0.5 %) eye 0.5 inch ophthalmic (eye) BID #3.5 06/14/24 ointment grams miconazole nitrate 2 % vaginal 1 appful vaginal BEDTIME 7 days 06/14/24 cream #45 grams alprazolam 0.25 mg tablet (Xanax) 0.25 mg PO BID PRN anxiety #7 tabs 02/07/25 nystatin 100,000 unit/mL oral 400,000 unit (4 mL) PO QID 7 days 02/07/25 suspension #112 mL Allergies Allergy/AdvReac Type Severity Reaction Status Date / Time N.K.D.A. Allergy Unknown Unknown Uncoded 09/12/25 15:51 Review of Systems Review of Systems: Yes all other systems are reviewed and are negative [facility] Social History Social History Patient Tobacco Use Status: Never used Tobacco Smoked in Last 30 Days: No Use of substances other than those prescribed or required for medical reasons: No Advance Directives: No Advance Directives Information Provided: Yes Physical Exam ED Vital Signs: Vital Signs - 24 hr 09/12/25 15:50 09/12/25 17:30 09/12/25 18:17 Temperature 97.3 F 97 F 97 F Pulse Rate 81 78 78 Respiratory Rate 18 16 16 Blood Pressure 230/97 H 199/87 H 199/87 H Pulse Oximetry 95 96 96 Oxygen Delivery Method Room Air Room Air Room Air BMI result Body Mass Index 19.5 Const Other: The patient is an 85-year-old female who was awake and alert with a normal mental status. She seemed to be somewhat breathless while talking to me. She also seemed to have an anxious demeanor. Orientation/consciousness: patient oriented x3 HENMT Other: The face is symmetrical. Mucous membranes moist. Eyes Other: Pupils are round equal, conjunctivae are clear, extraocular movements intact Neck Neck: Yes normal visual inspection, Yes full ROM and Yes no JVD Resp Other: The patient was tachypneic and seemed to take frequent small breaths. I did not hear any wheezes or crackles. Cardio Rate: regular rate Rhythm: regular rhythm Heart sounds: S1 normal heart sound present and S2 normal heart sound present GI Other: Abdomen is soft and nontender Skin Other: The skin is dry and unremarkable Neuro General: patient oriented x3, tone normal, moves all extremities, no focal motor deficits and CN's II-XI intact bilaterally Extrem Other: There is no calf swelling or tenderness. No asymmetry. No peripheral edema. Medications Administered Discontinued Medications Generic Name Dose Route Start Last Admin Trade Name Freq PRN Reason Stop Dose Admin Lorazepam 0.5 mg 09/12/25 16:51 09/12/25 17:30 Lorazepam 0.5 Mg Tablet PO 09/12/25 16:52 0.5 mg ONCE ONE Administration Medical Decision Making Medical Decision Making [facility] Narrative: The patient is an 85-year-old female who says that she feels she has been having problems with shortness of breath for several weeks or longer. She says that on previous occasions her sense of dyspnea has been attributed to anxiety. It also turns out that the patient has been on fairly long-term clonazepam and I believe that her clonazepam prescribing was recently switched from her PCP to a psychiatric prescriber. I believe that the psychiatric prescriber is currently trying to wean her off clonazepam. The patient certainly seems to have an anxious affect. She does not look acutely ill although she is tachypneic in a manner that suggests anxiety more than acute disease. Her lungs are clear. Her chest x-ray shows no acute findings. Her pro BNP is elevated but she has a history of congestive heart failure. I do not feel that she is describing symptoms of an exacerbation of congestive heart failure. Specifically she did not seem to have any complained of orthopnea or PND. No peripheral edema. A D-dimer was normal at 161. the patient complained of feeling anxious while in the emergency room and requested something for anxiety. She was here with the daughter. The patient was given 0.5 mg of lorazepam. I explained to the patient and her daughter that I do not think there is any dangerous acute process at work causing your shortness of breath. The patient seemed to imply that she has not taken any clonazepam for several days. Perhaps she is feeling some sense of withdrawal from benzodiazepines. Strangely the daughter reported that there is currently a prescription for clonazepam waiting at the patient's pharmacy. Ultimately I felt the patient was appropriate for discharge. Whether she chooses to take any additional clonazepam is potentially problematic. If she is in fact gone several days without benzodiazepines she may set herself back by resuming clonazepam, however she may be so symptomatic that she feels she needs to use the clonazepam. I discussed this with the patient and the daughter and they will make their own decisions tomorrow. Otherwise they should plan on the patient following up with her regular providers. Lab Data 09/12/25 16:27 09/12/25 16:27 Labs: Lab Results 09/12/25 09/12/25 Range/Units 16:27 17:08 WBC 8.9 (4.8-10.8) X10*3/uL RBC 4.34 (4.20-5.50) X10*6/uL Hgb 13.7 (12.0-16.0) g/dl Hct 39.0 (37.0-47.0) % MCV 89.9 (80.0-98.0) fL MCH 31.6 (27.0-33.0) pg MCHC 35.1 H (31.0-35.0) g/dl RDW 13.3 (11.0-16.0) % Plt Count 247 (160-400) X10*3/uL MPV 10.7 (9.4-12.3) fL Immature Gran % (Auto) 0.3 (0.0-0.4) % Neut % (Auto) 66.7 (45-73) % Lymph % (Auto) 23.8 (20-40) % Pima % (Auto) 8.8 (2-11) % Eos % (Auto) 0.1 (0-4) % Baso % (Auto) 0.3 (0-2) % Lymph # (Auto) 2.1 (1.2-4.9) X10*3/uL Pima # (Auto) 0.8 (0.1-1.2) X10*3/uL Eos # (Auto) 0.0 (0.0-0.4) X10*3/uL Baso # (Auto) 0.0 (0.0-0.2) X10*3/uL Abs Immat Gran (auto) 0.03 (0.00-0.03) X10*3/uL Absolute Neuts (auto) 5.9 (2.0-8.3) x10*3/uL Absolute Nucleated RBC 0.000 (0.0-0.012) X10*3/uL Nucleated RBC % (auto) 0.0 (0.0-0.2) /100WBC D-Dimer High Sensitivty 161 NG/ML Sodium 139 (135-145) mmol/L Potassium 3.7 (3.3-5.1) mmol/L Chloride 104 (96-108) mmol/L Carbon Dioxide 23 (22-29) mmol/L Anion Gap 16 (12-20) BUN 14 (9-16) mg/dL Creatinine 0.64 (0.5-1.4) mg/dL Estim Creat Clear Calc 44.3 Estimated GFR > 60 Random Glucose 103 (60-115) mg/dL Calcium 9.6 (8.4-10.2) mg/dL Total Bilirubin 0.7 (0.0-1.0) mg/dL AST 35 H (5-31) U/L ALT 27 (0-31) U/L Alkaline Phosphatase 66 (39-117) U/L Troponin I High Sens 3.4 (<3.5-17.0) ng/L NT-Pro-B Natriuret Pep 1769.6 H (<300) pg/mL Total Protein 7.4 (6.5-8.0) g/dL Albumin 4.5 (3.5-5.0) g/dL Influenza Type A (PCR) NEGATIVE (Negative) Influenza Type B (PCR) NEGATIVE (Negative) RSV RNA Qual (PCR) NEGATIVE (Negative) SARS-CoV-2 RNA (RT-PCR) NEGATIVE (Negative) Discharge Plan Discharge Clinical Impression: Shortness of breath, Anxiety Patient Disposition: Home, Self-Care Additional Instructions: Your testing in the emergency room today is very reassuring. I suspect a lot of your symptoms may be related to your recent cessation of clonazepam. Stopping drugs like clonazepam (the benzodiazepine family) is notorious for being very difficult and associated with a lot of symptoms like worsening anxiety. You seem to have another prescription for clonazepam pending at your pharmacy. Since you have gone several days without any clonazepam it might be hogan not to restart the clonazepam tomorrow. However that may be associated with a lot of anxiety. I will leave it to you do decide whether to use your new prescription or not. Please follow up with your regular doctor and your psychiatric prescriber. Return to the emergency room if significantly worse. Prescriptions: No Action nystatin 100,000 unit/mL suspension 400,000 unit PO QID 7 Days Qty: 112 0RF Rx Instructions: swish and swallow alprazolam [Xanax] 0.25 mg tablet 0.25 mg PO BID PRN (Reason: anxiety) Qty: 7 0RF carvedilol 12.5 mg tablet 12.5 mg PO BID zolpidem 10 mg tablet 10 mg PO BEDTIME PRN polyethylene glycol 3350 17 gram/dose powder 17 g PO DAILY clonazepam 0.5 mg tablet 0.5 mg PO DAILY atorvastatin 40 mg tablet 40 mg PO DAILY amlodipine 5 mg tablet 5 mg PO DAILY famotidine 40 mg tablet 40 mg PO BEDTIME Qty: 60 0RF miconazole nitrate 2 % cream 1 appful vaginal BEDTIME 7 Days Qty: 45 0RF erythromycin 5 mg/gram (0.5 %) ointment 0.5 inch ophthalmic (eye) BID Qty: 3.5 0RF Referrals: Kannan Nguyen MD [Primary Care Provider, Medical] Interventions: ED Discharge Assessment Last Done: 09/12/25 18:17 Discharge Date/Time: 09/12/25 18:17 Print Language: Mozambican
[2025-09-12 16:32] LABS: MANUAL DIFF FLAG NO
[2025-09-12 16:33] LABS: Hematocrit 39.0 % (37.0-47.0); Hemoglobin 13.7 g/dl (12.0-16.0); Imm Gran Abs Auto 0.03 X10*3/uL (0.00-0.03); Imm Gran Pct Auto 0.3 % (0.0-0.4); Lymphocytes Absolute Auto 2.1 X10*3/uL (1.2-4.9); Mean Corpuscular HGB Conc 35.1 g/dl (31.0-35.0); Mean Corpuscular Hemoglobin 31.6 pg (27.0-33.0); Mean Corpuscular Volume 89.9 fL (80.0-98.0); NRBC Abs Auto 0.000 X10*3/uL (0.0-0.012); NRBC Pct Auto 0.0 /100WBC (0.0-0.2); Platelet Count 247 X10*3/uL (160-400); Red Blood Count 4.34 X10*6/uL (4.20-5.50); White Blood Count 8.9 X10*3/uL (4.8-10.8)
[2025-09-12 16:46] LABS: Alanine Aminotransferase 27 U/L (0-31); Albumin Level 4.5 g/dL (3.5-5.0); Alkaline Phosphatase 66 U/L (39-117); Anion Gap 16 (12-20); Aspartate Amino Transferase 35 U/L (5-31); Blood Urea Nitrogen 14 mg/dL (9-16); Calcium 9.6 mg/dL (8.4-10.2); Carbon Dioxide 23 mmol/L (22-29); Chloride 104 mmol/L (96-108); Creatinine Clr Calc Pharmacy 44.3; Estimated Glomerular Filt Rate > 60; Potassium 3.7 mmol/L (3.3-5.1); Sodium 139 mmol/L (135-145); Total Protein 7.4 g/dL (6.5-8.0)
[2025-09-12 16:55] LABS: Troponin-I High Sensitivity 3.4 ng/L (<3.5-17.0)
--- OUTSIDE RECORDS SUMMARY | 2025-09-12 17:10 | XMS_ITS | Patient Health Record ---
[facility] Address [address] [facility] [place] [address] Care Team Providers Care Marketing Operations Analyst Name Role Phone Kannan Nguyen MD Primary Care Provider Roxana Del Rio Unavailable [phone] Allergies Allergen (clinical drug ingredient) Drug/Non Drug [...] as needed Orally Once a day Active Oneco 3 Not-Taking clonazePAM prn Not-Takin g Vitamin [...] atherosclerosis of arteries of lower limbs (disorder) (59841099594754395 ) Atherosclerosis of artery of both lower extremities (I70.203) Active confirmed Vital Signs Blood pressure diastolic 60 mm Hg 07/01/2025 Height 5ft in 07/01/2025 Blood pressure systolic 130 mm Hg 07/01/2025 Weight 109 lbs 07/01/2025 BMI 21.29 kg/m2 07/01/2025 Encounters Encounter Location Date Provider Diagnosis [facility] [place] [address] [place] [address] 10/29/2024 Roxana Perica Pain in right foot M79.671 ; 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 ; Pain in left foot M79.672 ; Neuritis of right foot G57.91 ; Neuritis of left foot G57.92 and Atherosclerosis of artery of both lower extremities I70.203 [facility] [place] [address] [place] [address] 03/18/2025 Roxana Quiles Atherosclerosis of artery of both lower extremities I70.203 [facility] [address] [address] 07/01/2025 Roxana Quiles Atherosclerosis of artery of both lower extremities I70.203 [facility] [address] 01/21/2025 Roxana Quiles Assessments Encounter Date Diagnosis (ICD Code) Assessment Notes Treatment Notes Treatment Clinical Notes Section Notes 10/29/2024 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) 10/29/2024 Pain in right foot (ICD-10 - M79.671) 03/18/2025 Atherosclerosis of artery of both lower extremities (ICD-10 - I70.203) 07/01/2025 Atherosclerosis of artery of both lower extremities (ICD-10 - I70.203) 10/29/2024 Pain in left foot (ICD-10 - M79.672) 10/29/2024 Neuritis of right foot (ICD-10 - [...] X ray : Foot, right 3V 06/14/2022 [id number]-Yecuiqnu Plate 06/10/2014 77073, E5716-SCJNC/INJECT, JOINT/BURSA 0 01/17/2023 Next Appt Details Provider Name:Roxana avery, 10/10/2025 11:00:00 AM, [address] [place] [address], [address], Insurance Providers Payer Name Payer Address Payer Phone Subscriber Number Group Number Insured Name Patient Relationship to Insured Coverage Start Date Coverage End Date Medicare National [employer]t [employer] [address] [place] [phone] [id number] Marina Stephanie Self - patient is the insured [facility] [address] [place] [address] [id number] MarinaBalbir kellogg Spouse - patient is the spouse of [...]
--- OUTSIDE RECORDS SUMMARY | 2025-09-12 17:11 | XMS_ITS | Patient Health Record ---
Author Organization [facility] Address [address] [place] [address] Care Team Providers Care Claims Representative Name Role Phone Lesser (RETIRED) Al GARAY Primary Care Provide Alex Odonnell Jr Unavailable Reason For Referral No Information Medications Medication SIG (Take, Route, Frequency, Duration) Notes Start Date End Date Status Multi Vitamin/Minerals Tablet Orally Active Mullen 3 1000 MG Capsule 1 capsule Orally Once a day Active Zolpidem Tartrate 10 MG Tablet 1 tablet at bedtime as needed Orally Once a day Active clonazePAM 0.5 MG Tablet 1 tablet Orally prn Active Zinc Active Aspir-81 81 MG Tablet Delayed Release 1 tablet Orally Once a day Active Vitamin E 1000 UNIT Capsule 1 capsule Orally Once a day Active Vitamin D 1000 UNIT Tablet 1 tablet Orally Once a day Active Losartan Potassium-HCTZ 100-25 MG Tablet 1 tablet Orally Once a day Active Social History Social History Additional Details Category Social Info Options Details Miscellaneous: Marital status: Occupation: retired Problems Problem Type SNOMED Code ICD Code Onset Dates Problem Status W/U Status Risk Notes Problem Colitis (93187008) Colitis (558.9) Active confirmed Plan Of Treatment No Information Insurance Providers Payer Name Payer Address Payer Phone Subscriber Number Group Number Insured Name Patient Relationship to Insured Coverage Start Date Coverage End Date [place] [address] [place] [address] [phone] [id number] MARTIN CONDE Self - patient is the insured [facility] [address] [place], [place] [id number] [phone] [id number] MARTIN CONDE Self - patient is the insured Medical (General) History Medical History History ICD Code hypertension anxiety degenerative joint disease insomnia Surgical History Surgery Date(Month/Year) appendectomy 1939's section 1963 cataract-lens implants- both eyes 994 cyst removal-right breast 1961
--- OUTSIDE RECORDS SUMMARY | 2025-09-12 17:11 | XMS_ITS | Data Portability ---
Author Organization [facility] Address [address] [address] Care Team Providers Care Computerized Machine Fabric Cutter Name Role Phone J CARLOS ARELLANO Primary [...] 05/22/2025 05/22/2025 Follow up with referring provider. [email or web address] Not available 05/22/2025 11:45:19 05/22/2025 05/22/2025 84yo [...] audio gram No observ ation record ed. [email or web address] Not Available 02/17 16:32:42 05/09/20 24 03/06/2023 [...] Sensorine ural hearing loss of bilateral ears 991318338 Active 2021 Sensorine ural hearing loss, bilateral ; Note: Date Diagnosed : 2 2:30 PM (H90.3) Not Available [facility] 4 02:52:00 Impacted cerumen of bilateral ears 95825116506 51521 Active 2021 Impacted cerumen, bilateral ; Note: Date Diagnosed : 2 2:30 PM (H61.23) Not Available [facility] 4 02:51:58 Vocal fatigue 2113949 Active 2024 ROCKY RUFF PA-C [address] [facility] [facility], [place], [address] , [place] - [facility] 5 14:34:46 Sensorine ural hearing loss of bilateral ears 583228221 Active 2024 Lela JONES [address] [facility] [address],[place] [address], [place], [address] , [place] - [facility] 5 11:51:44 Bilateral tinnitus 67205620668 02 Active 2024 ROCKY RUFF PA-C [address] [facility] [place] [facility], [place], [address] , [place] - [facility] 12:22:44 Problem Notes None recorded. Procedures Surgical History Date Name Laterality Status Provider Name and Address Organization Details Recorded Time 05/22/20 25 Air & Speech Audio with Tymps - 25993, 44898 & 88434 completed GREGG PIKE AuD [address], [place], [address], [place] - [facility] 05/22/2025 11:51:26 01/08/20 25 FOL_DP completed ROCKY RUFF PA-C [address] [facility] [address], [place], [address], [place] - [facility] 01/07/2025 13:57:41 03/12/20 24 Air only Audio - 79282 completed Lizabeth Granger [place] - [facility] 03/12/2024 15:00:01 03/12/20 24 Tympanometry - 50421 completed Lizabeth Granger [place] - [facility] 03/12/2024 14:59:55 03/12/20 24 SRT & Speech Recognition - 41191 completed Lizabeth Granger [place] [facility] 03/12/2024 14:59:57 Imaging Results None recorded. Procedure Notes None recorded. Medical Equipment None Reported. Allergies No known drug allergies Medications Name Sig Start Date Stop Date Status Note LastModified by Organization Details LastModified Time celecoxib 200 mg capsule 03/06 completed Medicati on ID: [id number] B rand Name: celecoxi b Send Method: E-Prescr ibed Sub s Allowed: subs OK [facility] : celecoxi b Not Available Not [...] mg tablet 03/06 completed Medicati on ID: [id number] B rand Name: lisinopr il-hydro chloroth iazide [...] 80 mg tablet active Medicati on ID: [id number] B rand Name: valsarta n Send Method: [...] mg tablet 01/07 completed Medicati on ID: [id number] B rand Name: spironol actone S end [...] mg tablet 01/07 completed Medicati on ID: [id number] B rand Name: simvasta tin Send Method: [...] % topical cream active Medicati on ID: 997931 B rand Name: clotrima zole Sen d [...] mg tablet 03/06 completed Medicati on ID: [id number] B rand Name: jonn hewitt Send Method: E-Prescr ibed Sub s Allowed: subs OK Medic ationGen ericName : nabumeto ne Not Available Not Available Not Available Flowflex COVID-19 Antigen Home Test kit 03/06 completed Medicati on ID: [id number] B rand Name: Flowflex COVID-19 Ag Home [...] Updated DateTime 01/07/2025 152.4 cm ZOEY BAL [facility] 01/07/2025 13:26:47 Date Recorded Body height Body mass index (BMI) Body weight Provider Name and Address Organization Details Last Updated DateTime 03/12/2024 152.4 cm 20.5 kg/m2 98315.2 g Suzannaellie Garber [facility] 03/12/2024 15:02:01 Date Recorded Body height Body mass index (BMI) Body weight Provider Name and Address Organization Details Last Updated DateTime 05/22/2025 152.4 cm 19.5 kg/m2 79280.[address] [facility] 05/22/2025 11:50:35 Social History None recorded. Functional [...] Note 5521 RICCO SCHILLING MD [facility] [address] [address] 03/12/2024 14:09:34 03/12/2024 15:12:04 Sensorineural hearing loss of bilateral ears 170145063 H90.3 Hearing stable. Retest in 1 year. No interventi on needed. 5540 LELA DON [facility] [address] [address] 03/12/2024 14:58:34 03/12/2024 17:54:47 Sensorineural hearing loss of bilateral ears 141186293 H90.3 Audiologic al evaluation results: Right ear: Mild sloping to moderately severe sensorineu ral hearing loss with excellent word recognitio n. Left ear: Mild raising to normal at 3kHz sloping to moderately severe sensorineu ral hearing loss with excellent word recognitio n. Tympanomet ry: Right Ear:[place] [id number] ROCKY RUFF PA-C [facility] [address] [address] 01/07/2025 13:22:09 01/07/2025 14:00:36 Vocal fatigue 9631575 R49.8 10004 ROCKY RUFF PA-C [facility] [address] [address] 05/22/2025 10:32:56 05/22/2025 12:27:10 Sensorineural hearing loss of bilateral ears 272115231 H90.3 94453735 Bilateral tinnitus 41339 90489 102 H93.13 290463 [id number] Lela JONES [facility] [address] [address] 05/22/2025 11:44:58 05/25/2025 13:29:11 Sensorineural hearing loss of bilateral ears 079041348 H90.3 81052510 Essentiall y mild sensorineu ral hearing loss [...] Tang Member ID Guarantor Name 05/22/2025 2 [facility]: [employer] Balbir Gray [id number] Stephanie Gray 05/22/2025 1 [place] [employer] [employer] Stephanie Gray [id number] Stephanie Gray 01/07/2025 2 [facility] - [place] Balbir Gray [id number] Stephanie Gray Notes Date Note Type Note Provider Name and Address Organization Details Recorded Time 4 text/html ROS as noted in the HPI Hx of SNHL AU. No significant changes over the last year. Audio today shows stable hearing. RICCO SCHILLING MD [address] [place] [address], [place], [address], [facility] 03/13/2024 12:30:35 5 text/html ROS as noted [...] and walking. She was recently seen at [facility] emergency department for this concern. Cardiac workup was benign, and she was told her dyspnea is anxiety mediated. No history of smoking. No seasonal allergies. No prior head or neck surgery. JEANETH OSCAR MD [address] [facility],[address], [address], [facility] 01/07/2025 17:03:01 5 text/html ROS as noted [...] or ear surgeries. JEANETH OSCAR MD 100 [facility],[address], [address], [facility] 05/22/2025 17:39:29 5 text/html Audiological Evaluation HPIReported by PatientTinnitusFor tinnitus reported, patient reportsboth ears. For sounds like, patient reportsclicking,heart beat, andpulsatile.Past Audiological Evaluation ResultsFor past audiological evaluation results, patient reportssensorineural hearing loss (both ears)but reportsamplification has not been recommended. Lela JONES [address] [facility],[address], [address], [facility] 05/22/2025 11:58:05 OBGyn Episode No OBEpisode recorded.
[2025-09-12 17:16] LABS: Resp Syncy Virus RNA Qual PCR NEGATIVE (Negative); SARS COV2 PCR INHOUSE NEGATIVE (Negative)
[2025-09-12 17:23] LABS: D Dimer High Sensitivity 161 NG/ML
[2025-09-12 17:30] VITALS: BP 199/87; PULSE 78; RESP 16; TEMP 36.1; O2SAT 96
[2025-09-12 17:53] LABS: NT Pro B Type Natriuretic Pept 1769.6 pg/mL (<300)
[2025-09-12 18:17] VITALS: BP 199/87; PULSE 78; RESP 16; TEMP 36.1; O2SAT 96
== END 2025-09-12 18:17 | disposition home or self-care (01) ==
PROVIDERS: Emergency Provider Emergency Medicine; PCP Internal Medicine
DX: R06.02 Shortness of breath (principal); F41.9 Anxiety disorder, unspecified; Z03.818 Encounter for observation for suspected exposure to other biological agents ruled out; R94.31 Abnormal electrocardiogram [ECG] [EKG]; I10 Essential (primary) hypertension; Z79.899 Other long term (current) drug therapy
CPT/HCPCS: 36415; 71045; 80053; 83880; 84484; 85025; 85379; 87637; 93005; 99283; 99285

== ENCOUNTER → 2025-09-12 15:30 | Outpatient (BNV) | payer MEDICARE, BC, SELFPAY | PROVIDERS: Emergency Provider Emergency Medicine; PCP Internal Medicine; Visit Provider Internal Medicine Cardiovascular Disease | DX: I49.8 Other specified cardiac arrhythmias (principal) | CPT/HCPCS: 93010 ==

== ENCOUNTER → 2025-09-12 16:14 | Outpatient (BNV) | payer MEDICARE, BC, SELFPAY | PROVIDERS: Emergency Provider Emergency Medicine; Visit Provider Radiology Diagnostic Ultrasound | DX: R06.02 Shortness of breath (principal) | CPT/HCPCS: 71045 ==